=== PATIENT | female | born 1945 | race Caucasian/White ===

== ENCOUNTER 2018-11-25 15:06 | Inpatient (IN) ==
[2018-11-25 15:18] LABS: BASO# 0.04 X1000 (0.0-0.2); BASO% 0.5 % (0.0-0.8); EOS# 0.08 X1000 (0.0-0.7); EOS% 1.1 % (0.0-10.0); HEMATOCRIT 36.2 % (37.0-47.0); HEMOGLOBIN 12.2 g/dL (12.0-16.0); IMM GRAN# 0.08 X1000 (0.0-0.04); IMM GRAN% 1.1 % (0.0-0.5); LYMPH# 0.84 X1000 (1.2-3.4); MCH 30.3 PG (27-31); MCHC 33.7 g/dL (33-37); MONO# 0.59 X1000 (0.11-0.59); MONO% 7.8 % (1.7-9.3); NEUT# 5.98 X1000 (1.4-6.5); NEUT% 78.5 % (42.2-75.2); PLT 243 X1000 (130-400); RBC 4.02 XMIL (4.2-5.4); RDW 13.2 % (11.5-14.5); WBC 7.61 X1000 (4.8-10.8)
[2018-11-25 15:20] LABS: URINE SOURCE CATH
[2018-11-25 15:25] LABS: BILIRUBIN URINE NEGATIVE (NEGATIVE); BLOOD URINE TRACE (NEGATIVE); CLARITY VERY CLOUDY (CLEAR); COLOR YELLOW; KETONE URINE TRACE mg/dL (NEGATIVE); LEUKOCYTES URINE TRACE (NEGATIVE); NITRITE URINE POSITIVE (NEGATIVE); SP GRAVITY URINE 1.015; UROBILINOGEN URINE NORMAL
[2018-11-25] MEDS ORDERED: NS 500 ML IV ONE ×2 (15:25→17:24)
[2018-11-25 15:31] LABS: URINE BACTERIA 4+ /HFP; URINE CAST NONE SEEN /LPF; URINE CRYSTAL NONE SEEN /HPF; URINE EPITHELIAL CELLS <10 /HPF (<10); URINE RBC <10 /HPF (<10); URINE WBC TNTC /HPF (<10); URINE YEAST NONE SEEN /HPF
[2018-11-25 15:35] LABS: UR AMPHETAMINES QUAL NONE DETECTED (NONE DETECT); UR BARBITUATES QUAL NONE DETECTED (NONE DETECT); UR BENZODIAZEPIN QUAL PRESUMPTIVE POSITIVE (NONE DETECT); UR CANNABINOIDS QUAL NONE DETECTED (NONE DETECT); UR COCAINE QUAL NONE DETECTED (NONE DETECT); UR METHADONE QUAL NONE DETECTED (NONE DETECT); UR METHAMPHETAMINE QUAL NONE DETECTED (NONE DETECT); UR OPIATES QUAL NONE DETECTED (NONE DETECT); UR OXYCODONE QUAL NONE DETECTED (NONE DETECT); UR PCP QUAL NONE DETECTED (NONE DETECT); UR PROPOXYPHENE QUAL NONE DETECTED (NONE DETECT); UR TCA QUAL NONE DETECTED (NONE DETECT)
[2018-11-25 15:37] LABS: ACETAMINOPHEN < 1.2 ug/mL (10-30); AGAP 10; ALBUMIN 3.5 g/dL (3.5-5.0); ALKALINE PHOSPHATASE 70 U/L (32-104); BUN 16 mg/dL (8-22); CALCIUM 8.5 mg/dL (8.8-10.2); CHLORIDE 103 mmol/L (98-107); COSMO 281; CREATININE 0.8 mg/dL (0.5-0.9); ESTIMATED GFR > 60; GLUCOSE 205 mg/dL (70-104); GOT 15 U/L (10-30); GPT 10 U/L (10-36); POTASSIUM 4.1 mmol/L (3.5-5.1); SALICYLATES < 3.00 mg/dL (3-10); SODIUM 137 mmol/L (136-145); TCO2 24 mmol/L (25-35); TOTAL PROTEIN 6.6 g/dL (6.3-8.3)
[2018-11-25 15:48] LABS: BE -2.2 mmoll (-3.0-3.0); BLOOD TYPE ARTERIAL; HCO3-(ACT) 23.2 mmoll (20.0-26.0); METHB 0.8 % (0.0-1.5); O2(CT) 17.1 mL/dL (15.0-23.0); O2HB 96.3 % (95.0-99.0); PCO2(98.6) 47 mmHg (35-45); PO2(98.6) 133 mmHg (60-100); SAMPLE BLOOD; SAO2 98.8 % (95.0-100.0); THB 12.5 g/dL (11.5-17.4); pH(98.6) 7.32 (7.35-7.45)
[2018-11-25 15:51] LABS: ALLEN TEST YES; MODALITY CANNULA
--- NOTE | 2018-11-25 16:00 | PROVIDER DOCUMENTATION ---
This chart was entered by Kinza Lazaro Scribe, acting as scribe for Bob Santoyo MD. [id number] Abuse/Overdose - General Chief Complaint: Overdose Stated Complaint: OVERDOSE Time Seen by Provider: 11/25/18 14:45 Source: EMS Allergies/Adverse Reactions: Allergies Allergy/AdvReac Type Severity Reaction Status Date / Time No Known Allergies Allergy Verified 07/21/18 11:55 Home Medications: Home Medication List Medication Instructions Recorded Confirmed Last Taken Type Lisinopril 10 mg PO DAILY 11/30/14 11/25/18 11/24/18 History Lorazepam [Ativan] 1 mg PO Q6HR 11/30/14 11/25/18 11/25/18 History PRAVAstatin [Pravachol] 40 mg PO DAILY 11/30/14 11/25/18 11/24/18 History Sertraline [Zoloft] 50 mg PO DAILY 11/30/14 11/25/18 11/24/18 History Insulin Detemir [Levemir] 30 unit SUBQ BID 12/05/14 11/25/18 11/24/18 History Methocarbamol [Robaxin] 500 mg PO BID #20 tab 07/21/18 11/25/18 11/24/18 Rx - History of Present Illness-Drug/Alcohol Nature of Presenting Problem: 73 y/o female is brought to the ED via EMS after being found unresponsive and two empty bottles of Ativan found near the patient. EMS states they gave Narcan 2 amps without response. The patient is snoring and offers no complaint. This episode of drinking or use began:: unsure Situational problems related to:: reports: N/A Psychiatric Complaints: reports: denies symptoms Associated Symptoms: reports: denies symptoms Any injuries associated with this episode of intoxication?: No Similar Symptoms Previously?: No Recently seen or treated by another doctor?: No - Substance Abuse Substance Use: reports: benzodiazepines - Overdose List substance(s) ingested.: Ativan How did the ingestion/other suicidal act come to attention?: family found unresponsive Review of Systems - Adult - REVIEW OF SYSTEMS - ADULT ROS:: unobtainable per condition Constitutional: reports: no symptoms reported Past History - Adult - PAST MEDICAL HISTORY-ADULT Review of Records: reports: Old Records Reviewed, Nursing Assessment Review, Medications Reviewed Cardiovascular: reports: hyperlipidemia Psychiatric: reports: depression Endocrine/Immune: reports: Diabetes Other Conditions: reports: cataract/glaucoma - PRIOR SURGERIES/PROCEDURES Surgical/Procedure History: reports: hysterectomy, other (cataract removal) - PRIOR HOSPITALIZATIONS Prior Hospitalizations: reports: for other non-related - IMMUNIZATION STATUS Childhood Immunizations: See Nurse Assessment Flu Vaccine: See Nurse Assessment - FAMILY HISTORY Family History: reviewed, not pertinent - SOCIAL HISTORY Smoking: non-smoker Physical Exam-General - PHYSICAL EXAM-ADULT Initial Vital Signs Reviewed: Yes - CONSTITUTIONAL General Appearance: severe distress, lethargic, slow to respond, obtunded - EYES Eyes: other (pinpoints) - HEAD, EARS, NOSE, MOUTH & THROAT HENMT: normocephalic/atraumatic - NECK Neck: full range of motion, supple - RESPIRATORY Respiratory: respiratory distress, rhonchi - CARDIOVASCULAR Cardiovascular: regular rate, rhythm - GASTROINTESTINAL (ABDOMEN) Abdominal Exam: non tender, soft - LYMPHATIC Lymphatic: no adenopathy - MUSCULOSKELETAL Back Exam: normal inspection, no CVA tenderness, no vertebral tenderness Extremity: normal range of motion, non-tender, normal gait - SKIN Integumentary: normal color, normal turgor - NEUROLOGIC Neurologic: grossly normal - PSYCHIATRIC Psych/Mental Status: oriented x 3 Progress - PLAN OF CARE/RESULTS Progress/Plan/Lab Results: Vital Signs - 8 hr 11/25/18 15:09 11/25/18 15:49 Pulse Rate 91 H 86 Respiratory Rate 17 14 Blood Pressure 165/80 156/85 O2 Sat by Pulse Oximetry 97 100 Laboratory Results - last 24 hr 11/25/18 11/25/18 11/25/18 15:05 15:05 15:05 WBC 7.61 RBC 4.02 L Hgb 12.2 Hct 36.2 L MCV 90.0 MCH 30.3 MCHC 33.7 RDW Std Deviation 13.2 Plt Count 243 MPV 10.0 Immature Gran % (Auto) 1.1 H Neut % (Auto) 78.5 H Lymph % (Auto) 11.0 L Vernon % (Auto) 7.8 Eos % (Auto) 1.1 Baso % (Auto) 0.5 Immature Gran # (Auto) 0.08 H Neut # (Auto) 5.98 Lymph # (Auto) 0.84 L Vernon # (Auto) 0.59 Eos # (Auto) 0.08 Baso # (Auto) 0.04 Specimen Type Sample Site pH pCO2 pO2 HCO3 Base Excess Oxyhemoglobin ABG O2 Sat (Calculated) ABG O2 Saturation ABG Carboxyhemoglobin ABG Methemoglobin Al Test A-a O2 Difference Total Hemoglobin Lactate Liter Flow Blood Gas Modality FiO2 % Sodium 137 Potassium 4.1 Chloride 103 Carbon Dioxide 24 L Anion Gap 10 BUN 16 Creatinine 0.8 Estimated GFR/1.73 m2 > 60 BUN/Creatinine Ratio 20 Glucose 205 H POC Glucose Calculated Osmolality 281 Calcium 8.5 L Total Bilirubin 0.30 AST 15 ALT 10 Alkaline Phosphatase 70 Total Protein 6.6 Albumin 3.5 Globulin 3.0 Albumin/Globulin Ratio 1.0 Urine Source Urine Color Urine Clarity Urine pH Ur Specific [place] Urine Protein Urine Ketones Urine Blood Urine Nitrite Urine Bilirubin Urine Urobilinogen Urine Microscopic RBC Urine WBC Urine Microscopic WBC Ur Epithelial Cells Urine Crystals Urine Bacteria Urine Casts Urine Yeast Urine Glucose Salicylates < 3.00 L Urine Opiates Screen Ur Oxycodone Screen Urine Methadone Screen U Propoxyphene Qual Acetaminophen < 1.2 L Ur Barbituates Screen Ur Tricyclics Screen Ur Phencyclidine Scrn Ur Amphetamines Screen U Methamphetamines Scrn U Benzodiazepines Scrn Urine Cocaine Screen U Cannabinoids Screen Plasma/Serum Ethyl Alc 11/25/18 11/25/18 11/25/18 15:15 15:15 15:19 WBC RBC Hgb Hct MCV MCH MCHC RDW Std Deviation Plt Count MPV Immature Gran % (Auto) Neut % (Auto) Lymph % (Auto) Vernon % (Auto) Eos % (Auto) Baso % (Auto) Immature Gran # (Auto) Neut # (Auto) Lymph # (Auto) Vernon # (Auto) Eos # (Auto) Baso # (Auto) Specimen Type Sample Site pH pCO2 pO2 HCO3 Base Excess Oxyhemoglobin ABG O2 Sat (Calculated) ABG O2 Saturation ABG Carboxyhemoglobin ABG Methemoglobin Al Test A-a O2 Difference Total Hemoglobin Lactate Liter Flow Blood Gas Modality FiO2 % Sodium Potassium Chloride Carbon Dioxide Anion Gap BUN Creatinine Estimated GFR/1.73 m2 BUN/Creatinine Ratio Glucose POC Glucose 209 H Calculated Osmolality Calcium Total Bilirubin AST ALT Alkaline Phosphatase Total Protein Albumin Globulin Albumin/Globulin Ratio Urine Source CATH Urine Color YELLOW Urine Clarity VERY CLOUDY A Urine pH 5.0 Ur Specific [place] 1.015 Urine Protein 3+(500 mg/dL) A Urine Ketones TRACE Urine Blood TRACE Urine Nitrite POSITIVE A Urine Bilirubin NEGATIVE Urine Urobilinogen NORMAL Urine Microscopic RBC <10 Urine WBC TRACE A Urine Microscopic WBC TNTC A Ur Epithelial Cells <10 Urine Crystals NONE SEEN Urine Bacteria 4+ Urine Casts NONE SEEN Urine Yeast NONE SEEN Urine Glucose 3+(500 mg/dL) A Salicylates Urine Opiates Screen NONE DETECTED Ur Oxycodone Screen NONE DETECTED Urine Methadone Screen NONE DETECTED U Propoxyphene Qual NONE DETECTED Acetaminophen Ur Barbituates Screen NONE DETECTED Ur Tricyclics Screen NONE DETECTED Ur Phencyclidine Scrn NONE DETECTED Ur Amphetamines Screen NONE DETECTED U Methamphetamines Scrn NONE DETECTED U Benzodiazepines Scrn PRESUMPTIVE POSITIVE A Urine Cocaine Screen NONE DETECTED U Cannabinoids Screen NONE DETECTED Plasma/Serum Ethyl Alc 11/25/18 15:30 WBC RBC Hgb Hct MCV MCH MCHC RDW Std Deviation Plt Count MPV Immature Gran % (Auto) Neut % (Auto) Lymph % (Auto) [place] % (Auto) Eos % (Auto) Baso % (Auto) Immature Gran # (Auto) Neut # (Auto) Lymph # (Auto) [place] # (Auto) Eos # (Auto) Baso # (Auto) Specimen Type ARTERIAL Sample Site R RADIAL pH 7.32 L pCO2 47 H pO2 133 H HCO3 23.2 Base Excess -2.2 Oxyhemoglobin 96.3 ABG O2 Sat (Calculated) 17.1 ABG O2 Saturation 98.8 ABG Carboxyhemoglobin 1.70 ABG Methemoglobin 0.8 Al Test YES A-a O2 Difference 36.0 Total Hemoglobin 12.5 Lactate 0.60 Liter Flow 3.0 Blood Gas Modality CANNULA FiO2 % 32.0 Sodium Potassium Chloride Carbon Dioxide Anion Gap BUN Creatinine Estimated GFR/1.73 m2 BUN/Creatinine Ratio Glucose POC Glucose Calculated Osmolality Calcium Total Bilirubin AST ALT Alkaline Phosphatase Total Protein Albumin Globulin Albumin/Globulin Ratio Urine Source Urine Color Urine Clarity Urine pH Ur Specific [place] Urine Protein Urine Ketones Urine Blood Urine Nitrite Urine Bilirubin Urine Urobilinogen Urine Microscopic RBC Urine WBC Urine Microscopic WBC Ur Epithelial Cells Urine Crystals Urine Bacteria Urine Casts Urine Yeast Urine Glucose Salicylates Urine Opiates Screen Ur Oxycodone Screen Urine Methadone Screen U Propoxyphene Qual Acetaminophen Ur Barbituates Screen Ur Tricyclics Screen Ur Phencyclidine Scrn Ur Amphetamines Screen U Methamphetamines Scrn U Benzodiazepines Scrn Urine Cocaine Screen U Cannabinoids Screen Plasma/Serum Ethyl Alc Orders Category Date Time Status Cardiac Monitoring DIRECTED Care 11/25/18 14:38 Active Finger Stick Blood Sugar (ED) DIRECTED Care 11/25/18 14:[address] HEAD W/O CONTRAST [CT] Stat Exams 11/25/18 15:00 Taken ABG [RESP] Routine Lab 11/25/18 15:30 Completed ACETAMINOPHEN [TDM] Stat Lab 11/25/18 15:05 Completed ALCOHOL BLOOD Stat Lab 11/25/18 15:05 Completed CBC WITH ELECTRONIC DIFF [HEME] Stat Lab 11/25/18 15:05 Completed COMPREHENSIVE METABOLIC PANEL [CHEM] Stat Lab 11/25/18 15:05 Completed SALICYLATES [TDM] Stat Lab 11/25/18 15:[address] [URINALYSIS] Stat Lab 11/25/18 15:15 Completed URINE DRUG SCREEN [address] Stat Lab 11/25/18 15:15 Completed URINE MICROSCOPIC [URINALYSIS] Stat Lab 11/25/18 15:15 Completed Overdose (suspected) Stat Oth 11/25/18 14:37 Ordered EKG [EKG] Stat Ther 11/25/18 14:38 Ordered 1339: Family is here now and talking to them they admit the patient has been talking about wanting to be with her mother or voicing suicidal ideation. Result Diagrams: 11/25/18 15:05 11/25/18 15:05 - EKG 1 Time of EKG reading by physician:: 15:33 EKG Read and Signed by:: Bob Santoyo EKG Interpretation (*Must complete 3 of following elements*): Abnormal Rate: 87 Rhythm: sinus w/fusion complexes Comments: otherwise normal - CONSULTS/PCP/HOSPITALIST Notification #1 *Consult/PCP/Hospitalist*: Dr. Encinas, Hospitalist Time Discussed: 15:41 Reason/Comments: possible intentional OD Consult Disposition: Will see in ED Departure - Departure Date of Disposition Decision: 11/25/18 Time of Disposition Decision: 15:59 DIAGNOSIS: Obtunded Disposition: ADMITTED INPATIENT 09 Certified Medical Emergency: Emergent Condition: Stable Additional Freetext Instructions: ED Follow Up Instructions: You have been treated by a care provider in the Emergency Department. These instructions are being provided to you so you can have an understanding of how to care for yourself upon discharge. Upon discharge from the Emergency Department, you are responsible for making arrangements for follow-up care by a physician of your choice. Take all prescribed medications as directed. Return to the Emergency Department immediately for any new or worsening symptoms. You may call the Physician Referral phone number at [phone] to obtain a list of Physicians who are taking new patients. Referrals and Follow-Ups: None,PCP [Primary Care Provider] - - Critical Care Note This patient required my direct & personal management of CC.: Yes Total Time (mins): 30 Critical Care Statement: This patient required my direct personal management to treat or rule out processes, the absence of which, could potentiallly result in sudden, clinically significant life or limb threatening deterioration. Attestation - Physician/ JATIN Attestation Patient care was provided by Advanced Practice Provider:: No The physician spent face to face time with patient:: Yes Advanced Practice Provider documentation review:: Supervising physician onsite and consulted in the evaluation and care of this patient. The physician did have a face to face encounter with the patient. This chart was documented by the indicated scribe, (Kinza Lazaro, Abdirashid) and accurately reflects the services I performed and decisions made by me, Bob Santoyo MD, as attested by the provider's signature.
--- NOTE | 2018-11-25 16:12 | Diag Imaging Result Doc PS360 ---
CT HEAD W/O CONTRAST - 11/25/2018 INDICATION: ams COMPARISON: 03/28/2012 FINDINGS: The ventricles and sulci are normal in size and contour. No intracranial mass or hemorrhage. The skull is intact. The sinuses mastoids and middle ears are clear. IMPRESSION: Negative exam. This exam was performed using automated exposure control, adjustment of mA or kV according to patient size, and/or use of iterative reconstruction technique Electronically signed by Bharath Salazar 11/25/2018 4:10 PM
[2018-11-25] MEDS: ROCEPHIN 1 GM in NS 50 ML IV SCH ×2 (16:50→17:00)
[2018-11-25] MEDS ORDERED: NS 1,000 ML ONE (16:54)
[2018-11-25] MEDS ORDERED: AMIDATE ONE (17:00)
[2018-11-25] MEDS ORDERED: QUELICIN ONE (17:01)
--- NOTE | 2018-11-25 17:32 | Diag Imaging Result Doc PS360 ---
CHEST-PORTABLE - 11/25/2018 INDICATION: AMS COMPARISON: 08/15/2011 FINDINGS: There is an endotracheal tube at T4 and nasogastric tube in good position in the stomach. The lungs are clear. Heart size is normal. No pneumothorax or pleural effusion. IMPRESSION: No complication from tube placement. No acute disease. Electronically signed by Bharath Salazar 11/25/2018 5:29 PM
[2018-11-25] MEDS: PROTONIX IV SCH (17:45)
[2018-11-25 18:00] LABS: BE -0.4 mmoll (-3.0-3.0); BLOOD TYPE ARTERIAL; HCO3-(ACT) 24.6 mmoll (20.0-26.0); METHB 1.1 % (0.0-1.5); O2(CT) 15.9 mL/dL (15.0-23.0); O2HB 96.2 % (95.0-99.0); PCO2(98.6) 29 mmHg (35-45); PO2(98.6) 163 mmHg (60-100); SAMPLE BLOOD; SAO2 98.9 % (95.0-100.0); SRATE 16 BPM; THB 11.5 g/dL (11.5-17.4); TVOL 500 mL; pH(98.6) 7.49 (7.35-7.45)
[2018-11-25 18:04] LABS: ALLEN TEST YES; MODALITY VENTILATOR
[2018-11-25] MEDS: SODIUM CHLORIDE 0.9% INJ SCH (18:05)
[2018-11-25] MEDS: DUONEB (A & A) INH SCH ×2 (19:10→23:32)
[2018-11-25 19:25] LABS: ACETAMINOPHEN < 1.2 ug/mL (10-30); SALICYLATES < 3.00 mg/dL (3-10)
--- NOTE | 2018-11-25 19:39 | HISTORY AND PHYSICAL ---
CHIEF COMPLAINT: Altered mental status. HISTORY OF PRESENT ILLNESS: The patient is a 73-year-old female who presented to the ER via ambulance service. The entire history is per family, as Ms. Monteiro is lethargic and sedated. The [id number] notes that they had seen her last night as well as early this morning, and she appeared to have no issues. They had left the house to run errands. Per Ms. Monteiro's phone, she had talked to her around 11 o'clock. The family arrived back some time after noon, and Ms. Monteiro was lying on the floor, stiff, and lying on a pill bottle, which had apparently cut the side of her face. The daughter notes that upon initial evaluation, she was afraid Ms. Monteiro was ; however, when she got close enough, she could see that she was barely breathing. They called the ambulance, and Ms. Monteiro was brought to the ER. The ambulance tried Narcan to no avail. The daughter notes that Ms Monteiro had 5 separate bottles of Ativan with different dates, with the most distant day being 2014. They are unaware if she took pills, and if so, how much. They do note that she had occasionally talked about wanting to go see her mother who several years ago; however, they deny any true knowledge of suicidal ideations. Ms. Monteiro has been depressed, but no more than usual. ALLERGIES: No known drug allergies. MEDICATIONS: Lisinopril 10, Ativan 1 mg every 6 hours p.r.n., Pravachol 40, Zoloft 50, insulin 30 b.i.d., Robaxin. REVIEW OF SYSTEMS: Unobtainable other than as noted above due to Ms. Monteiro's current state. PAST MEDICAL HISTORY: Significant for chronic depression, high cholesterol, diabetes, anxiety, hypertension. PAST SURGICAL HISTORY: She has had a cataract removal. FAMILY HISTORY: Noncontributory. SOCIAL HISTORY: She does not smoke, drink or use other illicit substances, per the family. PHYSICAL EXAMINATION: VITAL SIGNS: Reviewed. Pulse 90, respiratory rate 17, BP 165/80, saturation 95% to 97% on 2 L. GENERAL: The patient is sedated. She is not arousable even with sternal rub. She is snoring. HEENT: Normocephalic. NECK: Supple. CARDIOVASCULAR: Regular rate. CHEST: Clear of wheezing, although positive rhonchorous upper airway noises as well as significant snoring. Snoring is slightly better when she is propped up. This also improves her air movement. ABDOMEN: Soft, nondistended. EXTREMITIES: She has no edema. NEUROLOGIC: Patient is sedated and lethargic. Does not arouse. LABS: WBCs 7, hemoglobin and hematocrit 12 and 36. CMP essentially normal except for glucose of 205. Salicylate at 3, acetaminophen at 1.2. Urine with trace blood, positive nitrites. ABG with a pH of 7.32. ASSESSMENT: Acute altered mental status, most likely secondary to drug use. Unsure if this is intentional or accidental. Given the quick time frame, it certainly may be intentional. We will admit her to the hospital, place her in the ICU and continue to follow her respiratory status with supportive care. ADDENDUM: Unfortunately, the patient's respiratory status continued to decline. She is no longer maintaining her airway even with being propped up, and therefore she will be intubated prior to being admitted. cc: Ishaan Encinas MD
[2018-11-25] MEDS ORDERED: HUMALOG (PARKWAY) SUBQ SCH (21:00)
[2018-11-26] MEDS: DUONEB (A & A) INH SCH ×5 (02:39→23:21)
[2018-11-26] MEDS ORDERED: ZOFRAN IV PRN (02:47)
[2018-11-26] MEDS: NS 1,000 ML IV SCH ×2 (03:15→13:49)
[2018-11-26 05:01] LABS: BASO# 0.02 X1000 (0.0-0.2); BASO% 0.3 % (0.0-0.8); EOS# 0.11 X1000 (0.0-0.7); EOS% 1.6 % (0.0-10.0); HEMATOCRIT 31.6 % (37.0-47.0); HEMOGLOBIN 10.7 g/dL (12.0-16.0); IMM GRAN# 0.04 X1000 (0.0-0.04); IMM GRAN% 0.6 % (0.0-0.5); LYMPH# 1.08 X1000 (1.2-3.4); LYMPH% 15.5 % (20.5-51.1); MCH 30.2 PG (27-31); MCHC 33.9 g/dL (33-37); MCV 89.3 FL (81-99); MONO# 0.56 X1000 (0.11-0.59); MONO% 8.1 % (1.7-9.3); MPV 10.6 FL (7.4-10.4); NEUT# 5.14 X1000 (1.4-6.5); NEUT% 73.9 % (42.2-75.2); PLT 231 X1000 (130-400); RBC 3.54 XMIL (4.2-5.4); RDW 13.4 % (11.5-14.5); WBC 6.95 X1000 (4.8-10.8)
[2018-11-26 05:10] LABS: ALLEN TEST YES; BE -2.3 mmoll (-3.0-3.0); BLOOD TYPE ARTERIAL; HCO3-(ACT) 23.1 mmoll (20.0-26.0); METHB 0.9 % (0.0-1.5); O2(CT) 15.3 mL/dL (15.0-23.0); O2HB 97.2 % (95.0-99.0); PCO2(98.6) 30 mmHg (35-45); PO2(98.6) 137 mmHg (60-100); SAMPLE BLOOD; SAO2 99.3 % (95.0-100.0); SRATE 16 BPM; TVOL 450 mL; pH(98.6) 7.45 (7.35-7.45)
[2018-11-26 05:11] LABS: MODALITY VENTILATOR
[2018-11-26 05:33] LABS: AGAP 13; ALB/GLOB RATIO 1.2; ALKALINE PHOSPHATASE 58 U/L (32-104); BUN 19 mg/dL (8-22); CALCIUM 8.3 mg/dL (8.8-10.2); CHLORIDE 107 mmol/L (98-107); COSMO 283; CREATININE 0.8 mg/dL (0.5-0.9); ESTIMATED GFR > 60; GLUCOSE 163 mg/dL (70-104); GOT 11 U/L (10-30); GPT 7 U/L (10-36); POTASSIUM 3.5 mmol/L (3.5-5.1); SODIUM 139 mmol/L (136-145); TCO2 19 mmol/L (25-35); TOTAL BILIRUBIN 0.27 mg/dL (0.20-1.00); TOTAL PROTEIN 5.6 g/dL (6.3-8.3)
[2018-11-26] MEDS: PROTONIX IV SCH ×2 (06:42→17:06)
[2018-11-26] MEDS: SODIUM CHLORIDE 0.9% INJ SCH ×2 (06:42→17:06)
[2018-11-26] MEDS: HUMALOG SUBQ SCH ×4 (06:43→20:31)
--- NOTE | 2018-11-26 07:12 | Diag Imaging Result Doc PS360 ---
CHEST-PORTABLE - 11/26/2018 INDICATION: vent patient COMPARISON: 11/25/2018 FINDINGS: Stable endotracheal tube and nasogastric tube. The lungs are clear and the heart size is normal. IMPRESSION: No acute disease or complication. Electronically signed by Bharath Salazar 11/26/2018 7:10 AM
[2018-11-26] MEDS: APRESOLINE IV PRN (10:59)
[2018-11-26 11:51] LABS: ALLEN TEST YES; BE -1.1 mmoll (-3.0-3.0); BLOOD TYPE ARTERIAL; HCO3-(ACT) 24.1 mmoll (20.0-26.0); METHB 0.9 % (0.0-1.5); MODALITY VENTILATOR; O2HB 96.9 % (95.0-99.0); PCO2(98.6) 29 mmHg (35-45); PO2(98.6) 164 mmHg (60-100); SAMPLE BLOOD; SAO2 99.2 % (95.0-100.0); THB 11.5 g/dL (11.5-17.4); pH(98.6) 7.48 (7.35-7.45)
--- NOTE | 2018-11-26 12:38 | PULMONOLOGY CONSULTATION ---
DATE: 11/26/2018 REQUESTING PHYSICIAN: Dr. Encinas. REASON FOR CONSULTATION: Respiratory failure. HISTORY OF PRESENT ILLNESS: Ms. Monteiro is a 73-year-old, white female, never smoker, who was found unresponsive by family with 2 empty bottles of Ativan nearby. The patient received Narcan by EMS but it is not clear that she received a dose of Romazicon. The patient was admitted to the hospital for observation but developed progressive apnea and obtundation requiring intubation for acute respiratory failure. The patient was initially admitted to the [facility] but has been transferred to [facility]. The patient did undergo a CT scan of the brain which was negative for acute changes. By report, the patient has been depressed with the loss of her mother who several years ago and has been talking about wanting to go see her. PAST MEDICAL HISTORY/PROBLEM LIST: 1. Depression/anxiety disorder. 2. Hypertension. 3. Dyslipidemia. 4. Diabetes mellitus. SOCIAL HISTORY: Nonsmoker. No alcohol use. FAMILY HISTORY: Noncontributory to current presentation. REVIEW OF SYSTEMS: Cannot be obtained. PHYSICAL EXAMINATION: General: Reveals a thin, white female. Her height is incorrectly listed in the computer as 7 foot and 11 inches and this will be addressed with the nursing staff. She does appear to be thin. She will withdraw to painful stimuli and grimace. Vital Signs: The patient has been afebrile for the last 24 hours. Blood pressure 161/72, heart rate 93, respiratory rate 14, oxygen saturation 100%. HEENT: Pupils are equal and reactive. Oropharynx appears clear. Neck: Supple. Chest: Reveals good air entry bilaterally without wheezing or rhonchi. Cardiac Examination: S1, S2. Abdomen: Soft, with positive bowel sounds. Extremities: Without edema. LABORATORIES: Chest x-ray reveals endotracheal tube in good position. Toxicology is positive for benzodiazepines. Salicylates and acetaminophen are negative. Electrolytes: Sodium 139, potassium 3.5, chloride 107, bicarbonate 19, anion gap minimally elevated at 13, glucose 163. IMPRESSION: A 73-year-old with a long history of anxiety and depression who presents obtunded with altered mental status and developed acute respiratory failure with loss of her airway requiring intubation and mechanical ventilation. She has encephalopathy but mental status appears to be improving. The patient received Narcan but not Romazicon. At this juncture, would not use Romazicon at the risk of initiating seizures. She appears to be approaching extubation. RECOMMENDATION: 1. Place on spontaneous breathing trial and follow. 2. The patient will need a formal psychiatric evaluation prior to discharge. 3. Routine bronchial hygiene. 4. Anticipate extubation later today if she has expected clinical improvement. cc: MD Isaac Jay MD MTDDarline
[2018-11-26] MEDS: ROCEPHIN 1 GM in NS 50 ML IV SCH (16:22)
[2018-11-27] MEDS: DUONEB (A & A) INH SCH ×6 (03:12→22:30)
[2018-11-27 04:40] LABS: ALLEN TEST YES; BE -3.7 mmoll (-3.0-3.0); BLOOD TYPE ARTERIAL; METHB 1.2 % (0.0-1.5); O2(CT) 15.3 mL/dL (15.0-23.0); O2HB 96.6 % (95.0-99.0); PCO2(98.6) 24 mmHg (35-45); PO2(98.6) 174 mmHg (60-100); SAMPLE BLOOD; SAO2 98.7 % (95.0-100.0); pH(98.6) 7.49 (7.35-7.45)
[2018-11-27 04:42] LABS: MODALITY VENTILATOR
[2018-11-27] MEDS: HUMALOG SUBQ SCH ×4 (06:30→20:39)
[2018-11-27] MEDS: PROTONIX IV SCH ×2 (06:31→17:23)
[2018-11-27] MEDS: SODIUM CHLORIDE 0.9% INJ SCH (06:31)
--- NOTE | 2018-11-27 07:18 | Diag Imaging Result Doc PS360 ---
EXAM: CHEST-PORTABLE INDICATION: vent patient TECHNIQUE: One view COMPARISON: 11/26/2018 FINDINGS: Support tubes and lines are in stable positions. The lungs are grossly clear. There is no discrete pleural fluid collection or pneumothorax. The cardiomediastinal silhouette and central vasculature are grossly unremarkable. IMPRESSION: Stable chest with no definite acute pathology by plain radiograph. Electronically signed by Fady Ohara 11/27/2018 7:15 AM
--- NOTE | 2018-11-27 07:35 | EKG Report ---
Test Performed on : 11/26/2018 11:47:14 AM Test Reason : Repeat for poison control Blood Pressure : / mmHG Vent. Rate : 096 BPM Atrial Rate : 096 BPM P-R Int : 162 ms QRS Dur : 080 ms QT Int : 370 ms P-R-T Axes : 074 073 078 degrees QTc Int : 467 ms Normal sinus rhythm. Normal ECG When compared with ECG of 15-AUG-2011 10:04, No significant change was found Confirmed by Chela PEREZ, Sergio ([id number]) on 11/27/2018 9:00:37 AM
[2018-11-27 08:39] LABS: BASO# 0.03 X1000 (0.0-0.2); BASO% 0.3 % (0.0-0.8); EOS# 0.02 X1000 (0.0-0.7); EOS% 0.2 % (0.0-10.0); HEMATOCRIT 31.7 % (37.0-47.0); HEMOGLOBIN 10.4 g/dL (12.0-16.0); IMM GRAN# 0.05 X1000 (0.0-0.04); IMM GRAN% 0.5 % (0.0-0.5); LYMPH# 0.96 X1000 (1.2-3.4); LYMPH% 9.1 % (20.5-51.1); MCH 30.1 PG (27-31); MCHC 32.8 g/dL (33-37); MCV 91.9 FL (81-99); MONO# 0.98 X1000 (0.11-0.59); MONO% 9.3 % (1.7-9.3); MPV 10.5 FL (7.4-10.4); NEUT# 8.53 X1000 (1.4-6.5); NEUT% 80.6 % (42.2-75.2); PLT 210 X1000 (130-400); RBC 3.45 XMIL (4.2-5.4); RDW 13.6 % (11.5-14.5); WBC 10.57 X1000 (4.8-10.8)
--- NOTE | 2018-11-27 09:41 | PROGRESS NOTE ---
DATE: 11/27/2018 SUBJECTIVE: I reviewed the patient's chart and reports by the admitting team. She was apparently admitted at [place] for lethargy and sedation and possible suicidal attempt. The patient was admitted there, transferred to [place]. Unfortunately I was not even notified of her presence in the hospital until yesterday afternoon. She had been on the hospitalist service up to this point. Apparently, the family is mad that hospitalist did not call them yesterday and would like me to call today. OBJECTIVE: Vital Signs: T-max 99.7, temperature now 99.7, pulse rate is 118, respiratory rate is 18, blood pressure 132/59. General: The patient does not wake up or respond to stimuli very much. HEENT: His pupils are of normal size and seem to react. Lungs: Clear to auscultation bilaterally. Cardiovascular: A regular tachycardia. LABORATORY DATA: White cell count 10.5, hematocrit 31.7. ABG shows a pH of 7.49, pCO2 of 24, PO2 of 174. She is on a ventilator at 30% FiO2 and 5 of PEEP, 5 pressure support. Blood sugar has been variable, today it was 283. I noted that the patient's urinalysis showed [id number]-count white cells, but no culture was sent. Since she has already give been given antibiotics, I doubt anything will grow but I am going to send for culture for completeness sake. If she continues to run a temperature and remains obtunded, we may have to broaden our antibiotic coverage. ASSESSMENT AND PLAN: 1. The patient remains obtunded. It is unclear how much Ativan she took. It is also unclear whether urinary tract infection is affecting her level of mental activity. She remains on the ventilator. Dr. Quintana has been consulted and will make adjustments in the ventilator. 2. I have sent urine for culture. She is on Rocephin and will remain on that for the time being. 3. The patient's diabetes is variable. She is covered by sliding scale insulin. 4. I have the patient's son's phone number and will attempt to call him today to give an update. cc: Isaac Palacio MD
[2018-11-27 09:53] LABS: AGAP 11; ALB/GLOB RATIO 1.1; ALBUMIN 3.1 g/dL (3.5-5.0); ALKALINE PHOSPHATASE 69 U/L (32-104); BUN 20 mg/dL (8-22); CALCIUM 8.6 mg/dL (8.8-10.2); CHLORIDE 108 mmol/L (98-107); COSMO 287; CREATININE 0.9 mg/dL (0.5-0.9); ESTIMATED GFR > 60; GLUCOSE 224 mg/dL (70-104); GOT 8 U/L (10-30); GPT 6 U/L (10-36); POTASSIUM 3.5 mmol/L (3.5-5.1); SODIUM 139 mmol/L (136-145); TCO2 20 mmol/L (25-35); TOTAL PROTEIN 5.8 g/dL (6.3-8.3)
[2018-11-27] MEDS ORDERED: ROMAZICON IV ONE (15:46)
--- NOTE | 2018-11-27 16:15 | PULMONOLOGY PROGRESS NOTE ---
DATE: 11/27/2018 SUBJECTIVE: The patient responds to painful stimuli, but will not follow commands. The patient will not open her eyes. OBJECTIVE: The patient is currently having a fever of 100.2 degrees at noon today. Blood pressure 138/67, heart rate 112, respiratory rate 18, oxygen saturation 100%. HEENT: Pupils are equal and reactive to light. Oropharynx appears clear. Neck is supple. Chest reveals occasional rhonchi bilaterally. Cardiac: S1, S2. Abdomen is soft. Extremities are without edema. DIAGNOSTIC STUDIES: White blood count 10.57, hemoglobin 10.4, platelet count 210,000. Chemistry: Sodium 139, potassium 3.5, chloride 108, bicarbonate 20, BUN 20, creatinine 0.9. Chest x-ray reveals no evidence of acute disease. IMPRESSION: A 73-year-old with: 1. Acute respiratory failure. 2. Altered mental status. 3. Fevers. Patient's mental status was improving yesterday, but has slightly plateaued. She now has low- grade fevers without significant leukocytosis. As per Dr. Palacio, this may be related to urinary tract infection. However, with the altered mental status, meningitis also remains in the differential. I will give a small dose of Romazicon to see if this improves her mental status as a diagnostic trial. The goal is not to completely reverse any benzodiazepine, and I am aware that she is at increased risk for seizures with Romazicon. If she does not have improvement, then Neurology consultation will be performed, and she may require a lumbar puncture. RECOMMENDATIONS: 1. Continue spontaneous breathing trial pending improvement in mental status. 2. Small dose of Romazicon with evaluation of mental status. 3. Continue bronchial hygiene. 4. Continue current antibiotic regimen. TIME SPENT IN CRITICAL CARE MANAGEMENT: 30+ minutes. cc: MD Isaac Jay MD
[2018-11-27] MEDS: ROCEPHIN 1 GM in NS 50 ML IV SCH (17:23)
[2018-11-27] MEDS: TYLENOL PR PRN (18:18)
[2018-11-27] MEDS: ZOSYN 3.375 GM in NS 50 ML IV SCH ×2 (18:18→23:59)
[2018-11-27] MEDS ORDERED: VANCOMYCIN IV PER PHARMACY MISC SCH (18:45)
[2018-11-27] MEDS ORDERED: VANCOMYCIN 1,350 MG in NS 250 ML IV ONE (20:00)
[2018-11-28] MEDS: DUONEB (A & A) INH SCH ×6 (03:49→23:17)
[2018-11-28 04:53] LABS: ALLEN TEST YES; BE -5.7 mmoll (-3.0-3.0); BLOOD TYPE ARTERIAL; HCO3-(ACT) 20.5 mmoll (20.0-26.0); METHB 1.6 % (0.0-1.5); MODALITY BI PAP; O2(CT) 13.5 mL/dL (15.0-23.0); O2HB 96.5 % (95.0-99.0); PCO2(98.6) 40 mmHg (35-45); PO2(98.6) 198 mmHg (60-100); SAMPLE BLOOD; SAO2 99.2 % (95.0-100.0); THB 9.6 g/dL (11.5-17.4); pH(98.6) 7.31 (7.35-7.45)
[2018-11-28 05:15] LABS: BASO# 0.04 X1000 (0.0-0.2); BASO% 0.4 % (0.0-0.8); HEMATOCRIT 29.4 % (37.0-47.0); HEMOGLOBIN 9.5 g/dL (12.0-16.0); IMM GRAN# 0.05 X1000 (0.0-0.04); IMM GRAN% 0.5 % (0.0-0.5); LYMPH% 11.7 % (20.5-51.1); MCHC 32.3 g/dL (33-37); MCV 92.7 FL (81-99); MONO# 1.13 X1000 (0.11-0.59); MPV 10.9 FL (7.4-10.4); NEUT# 7.76 X1000 (1.4-6.5); NEUT% 75.4 % (42.2-75.2); PLT 187 X1000 (130-400); RBC 3.17 XMIL (4.2-5.4); RDW 13.6 % (11.5-14.5); WBC 10.28 X1000 (4.8-10.8)
[2018-11-28] MEDS: SODIUM CHLORIDE 0.9% INJ SCH (05:24)
[2018-11-28] MEDS: PROTONIX IV SCH ×2 (05:24→18:00)
[2018-11-28] MEDS: ZOSYN 3.375 GM in NS 50 ML IV SCH ×4 (05:24→23:49)
[2018-11-28 05:33] LABS: CALCIUM 8.5 mg/dL (8.8-10.2); POTASSIUM 3.6 mmol/L (3.5-5.1)
[2018-11-28] MEDS: HUMALOG SUBQ SCH ×4 (06:02→20:31)
--- NOTE | 2018-11-28 07:01 | Diag Imaging Result Doc PS360 ---
EXAM: CHEST-PORTABLE 11/28/2018 HISTORY: vent TECHNIQUE: AP portable at 0506 COMMENT: The inspiration is less optimal than on 11/27/2018. The endotracheal and NG tubes have been removed. There is probable subsegmental atelectasis in both lower lobes. IMPRESSION: Bibasilar atelectasis. Poor inspiration. Electronically signed by Garth Crews 11/28/2018 6:58 AM
--- NOTE | 2018-11-28 09:33 | PROGRESS NOTE ---
DATE: 11/28/2018 SUBJECTIVE: I spoke at length with the patient's son yesterday. He related several incidents over the past month, where the patient either denied doing something or was unaware that she was doing things in the house. She was very disoriented. He has no idea about her level of glycemic control or whether hypoglycemia played a part in her episodic confusion. He could not identify any psychosocial stressors which may have driven her to try and end her own life. Dr. Quintana's notes were reviewed. She was taken off the ventilator yesterday, and was on BiPAP for a while, and now is on an aerosol face mask. She does not respond in a meaningful fashion to my exam. OBJECTIVE: Vital Signs: Temperature at 3 a.m. was 99.3, pulse rate is 87, respirations 20 at the time of my examination, blood pressure 141/63, the patient is 100% saturated on mask. HEENT: The sclerae are anicteric. The patient does not respond to sternal rub in any meaningful fashion. She does stir a little bit and moves spontaneously, but makes no response to verbal or tactile stimuli. Lungs: Sound very rough and coarse throughout the respiratory cycle. She is not frankly wheezing, and is moving air fairly well. Cardiovascular: Regular at 87 beats per minute on the monitor. Extremities: No peripheral edema. LABORATORY DATA: White cell count is 10.2, hematocrit 29.4. ABG showed a pH of 7.31, pCO2 of 40, PO2 of 198. This was taken on BiPAP, and she has since been put on aerosol face mask. BUN 17, creatinine 1.0. Blood sugar has been variable, but mostly in the [id number] 100s, which is more than acceptable. Sputum culture shows sparse growth with normal sahara. Urine culture is pending. ASSESSMENT AND PLAN: 1. The patient remains obtunded. She had a slight response to Romazicon yesterday. Neurology has been consulted. 2. The patient is off the ventilator. Her lungs sound kind of junky this morning. 3. The patient is on very broad-spectrum antibiotics. Urine was sent for culture, but is pending, and we have to be aware of possible lung infection as well. 4. The patient's diabetes has been reasonably well controlled on sliding scale. She is obviously nothing by mouth due to her obtundation. 5. I will speak again with the patient's son for updates. cc: Isaac Palacio MD
--- NOTE | 2018-11-28 10:05 | PULMONOLOGY PROGRESS NOTE ---
DATE: 11/28/2018 SUBJECTIVE: Patient was successfully extubated last evening. She remains on a face mask. She has no increased work of breathing. She is intermittently combative. She will not respond to and voice. OBJECTIVE: Vital Signs: Blood pressure 129/72, heart rate 88, respiratory rate 16, oxygen saturation 100%. HEENT pupils are equal and reactive. Oropharynx appears clear. Neck is supple. Chest reveals occasional crackles in the lung bases. Cardiac exam S1-S2. Abdomen is soft. Extremities are without edema. LABORATORIES: White blood count 10.28, hemoglobin 9.5, platelet count 187,000. Sodium 143, potassium 3.6, chloride 110, bicarbonate 22, BUN 17, creatinine 1.0, glucose of 188. Arterial blood gas reveals a pH 7.31, pCO2 of 40, PO2 of 198. Chest x-ray reveals basilar atelectasis with shallow inspiration. Microbiology reveals no new data. IMPRESSION: 73-year-old with: 1. Acute respiratory failure. 2. Fevers, which appeared to be subsiding. 3. Altered mental status. 4. Presumptive drug overdose. DISCUSSION: 73-year-old with problems outlined above. I did briefly discussed the case with Dr. Das last evening. She continues to have altered mental status. It has been greater than 60 hours since her ingestion and she continues to remain altered. PLAN: 1. Continue supportive care with oxygen and BiPAP p.r.n. 2. Avoid sedating medicines. 3. Continue broad-spectrum antibiotics. 4. Will ask Neurology to evaluate this morning. cc: MD Isaac Jay MD
--- NOTE | 2018-11-28 15:30 | CONSULTATION ---
DATE OF CONSULTATION: 11/28/2018 REASON FOR CONSULT: Altered mental status, overdose. HISTORY OF PRESENT ILLNESS: This is a 73-year-old, female with a history of depression, anxiety, hypertension, diabetes, and hyperlipidemia who was admitted on 11/25/2018 at the [facility] for altered mental status. History is from chart review as the patient cannot provide a history and there is currently no family available. Apparently, the patient was seen the night prior as well as early the morning of and she appeared well. They left her alone for some time, though they spoke to her on the phone around 11 o'clock. They arrived after noon sometime and found the patient lying on the floor on top of a pill bottle. They felt she was barely breathing. EMS was called. Narcan did not have any affect. The daughter noted that the patient had 5 separate bottles of Ativan with different dates. They are unsure if the patient took the pills or not. They did note that she had been depressed and occasionally talked about wanting to see her mother who had several years ago. The patient was admitted and actually required intubation just before that as her respiratory status continued to decline. She was transferred to [facility] subsequently. Head CT did not show acute findings. The patient was extubated successfully late last night. It looks like this morning, she was not really responding to sternal rub but stirred a little bit spontaneously. There was no response to verbal or tactile stimuli. There was mention of a slight response to a low dose of Romazicon yesterday. She had some fever yesterday but none today. Toxicology was presumptive positive for benzodiazepines on admission. Urinalysis was suspicious for a urinary tract infection but the culture did not grow. She may have received some antibiotics prior to that. PAST MEDICAL HISTORY: Includes depression, anxiety, hypertension, hyperlipidemia, diabetes, and cataract surgery. FAMILY HISTORY: Noncontributory. SOCIAL HISTORY: She does not smoke or drink alcohol. ALLERGIES: No known drug allergies listed. HOME MEDICATIONS: Include lisinopril, lorazepam, Pravachol, Zoloft, insulin, Robaxin. REVIEW OF SYSTEMS: Unobtainable due to patient's mental status. PHYSICAL EXAMINATION: Vital Signs: She has been afebrile all day today. Her blood pressure 144/76, pulse 90s, respirations 18. Ms. Mnoteiro is supine in bed, squirming around pretty consistently. She has her eyes closed. She does not follow commands. She frequently and appropriately yells to tell me to stop or to leave her alone when I apply noxious stimuli during examination. At one point, she opened her eyes and appeared to look my way. She actively resists passive eye opening. Pupils appear equal, round, and reactive to bright light. They are miotic. There is horizontal eye movement with passive head turning. Visual ruby are difficult to assess in her current agitated state. Face appears symmetric with equal grimace. Corneal responses are present bilaterally. Tone is equal in the limbs. She is seen to move all of her extremities at least against gravity and seems to pull and resist my passive movement of all of her limbs. This is symmetric without obvious focal deficit. She responds to noxious stimuli in all extremities. There is no clonus. Plantar response is downgoing bilaterally. Reflexes trace at the ankles, 1 to 2+ at the knees, 1 to 2+ at the biceps. DIAGNOSTICS: Head CT, noncontrast, no acute findings. This was personally reviewed. Chest x-ray showing bibasilar atelectasis. Normal white count since her arrival. Normal sodium, BUN, and creatinine. Blood sugars 120s to 220s. Calcium of 8.5. AST and ALT are low. Urinalysis is suspicious for infection. Toxicology is negative except presumptive positive for benzodiazepines. Serum ethyl alcohol 0. ASSESSMENT AND PLAN: Global encephalopathy with suspicion for lorazepam drug overdose. There was accompanying acute respiratory failure with intubation, though she has tolerated recent extubation. There were fevers yesterday, though none so far today. White count has remained normal. Clinically, it seems that she has made some improvement and has gone from being obtunded to somewhat agitated during my time at the bedside. I would continue supportive care and treating any underlying infections. Avoid sedating medications as able. I am going to order a routine EEG to look for subclinical seizure activity or increased propensity to seizure. If she begins to spike temperatures again without obvious source of infection, then we may need to consider lumbar puncture. Thank you for the consultation. cc: MD Isaac Reyes MD MTDD
[2018-11-28] MEDS: TYLENOL PR PRN (23:49)
[2018-11-29] MEDS ORDERED: GEODON IM ONE (02:12)
[2018-11-29] MEDS ORDERED: STERILE WATER INJ. INJ ONE (02:12)
[2018-11-29] MEDS: DUONEB (A & A) INH SCH ×6 (02:34→23:51)
[2018-11-29] MEDS: SODIUM CHLORIDE 0.9% INJ SCH (05:03)
[2018-11-29] MEDS: PROTONIX IV SCH ×2 (05:03→21:45)
[2018-11-29] MEDS: ZOSYN 3.375 GM in NS 50 ML IV SCH ×3 (05:03→20:47)
[2018-11-29] MEDS: HUMALOG SUBQ SCH ×4 (06:15→20:52)
[2018-11-29] MEDS: VANCOMYCIN 1,100 MG in NS 250 ML IV SCH (08:37)
--- NOTE | 2018-11-29 13:08 | PROGRESS NOTE ---
DATE: 11/29/2018 SUBJECTIVE: Ms. Monteiro has global encephalopathy. Dr. Barrera saw her earlier this week. There is presumed lorazepam overdose with intoxication. She presented with very poor responsiveness. She seems to be slightly improved in recent days. She has been more spontaneous with movement but not attentive to communication. She has mildly elevated blood sugar, otherwise unremarkable chemistry. Urine drug screen was positive only for benzodiazepine. Noncontrast CT of the head 11/25/2018 was unremarkable. EEG is in progress. She has been afebrile for the last 48 hours. She had some relatively low-grade fever a few days ago. OBJECTIVE: On exam today, she is awake, seems alert, spontaneously looking around the room, turning head left and right, conjugate gaze left and right, moving all limbs spontaneously. Limb tone is symmetric. There is no meningismus. She looked at the source of voice when I called her name but she did not follow instructions or communicate beyond that. ASSESSMENT AND PLAN: Discussed with family friend at the bedside. Not certain what has been her baseline lorazepam dose. Conceivably, she does not have high benzodiazepine tolerance, took a very high dose of benzodiazepine and may have long half-life with her low tolerance. Not certain that there is no other factor with her encephalopathy, but no clear evidence of anything else. I will check on the EEG and follow. No urgent suggestion from neurology standpoint today. Thanks for asking us to see Ms. Monteiro. cc: MD Isaac Bonds III, MD MTDD
--- NOTE | 2018-11-29 20:31 | PROGRESS NOTE ---
DATE: 11/29/2018 SUBJECTIVE: The patient is still not very responsive. She moves spontaneously in the bed. She did require some type of sedation last night, at about 2 a.m., which is somewhat unfortunate because we are trying to lav crewman her level of alertness. OBJECTIVE: Vital Signs: 97.9, 97, 20, 100% saturated on 2 L nasal cannula. General: The patient responds slightly to painful stimuli, but is mumbling, has her eyes closed, and does not follow commands. Lungs: The patient's lungs are better than yesterday. She is clear at the time of my examination. Cardiovascular: Bordering on tachycardia, but appeared regular on the monitor. LABORATORY: There was no laboratory drawn today. Blood sugars are reasonably controlled with sliding scale insulin. ASSESSMENT AND PLAN: 1. The patient's overall mental status has not improved. We will continue to monitor. Neurology is following. 2. The patient is off the ventilator. She is saturating reasonably well. Her lungs are improved this morning. 3. The patient had a urinary tract infection, but urine culture did not grow anything because the urine culture was obtained after antibiotics were already started. She is on broad-spectrum antibiotic to cover the urinary tract infection and possible lung infection. 4. The patient's diabetes has been reasonably well controlled on sliding scale. 5. Dr. Das spoke with the patient's family this afternoon. cc: Isaac Palacio MD
[2018-11-29] MEDS: APRESOLINE IV PRN (20:47)
--- NOTE | 2018-11-29 21:01 | PULMONOLOGY PROGRESS NOTE ---
DATE: 11/29/2018 SUBJECTIVE: The patient does periodically open her eyes. She will not follow commands. OBJECTIVE: Blood pressure 148/75, heart rate 97, respiratory rate 15, oxygen saturation 100%. HEENT: Pupils are equal and reactive. Oropharynx appears clear. Neck is supple. Chest reveals good air entry without wheezing or rhonchi. Cardiac exam: S1, S2. Abdomen is soft. Extremities without edema. IMPRESSION: A 73-year-old with: 1. Acute hypoxemic respiratory failure. 2. Fevers which have resolved. 3. Encephalopathy, possibly drug-induced. 4. Presumptive suicide attempt. PLAN: 1. Continue supportive care. 2. Wean oxygen as tolerated. 3. The patient will need a Psychiatry evaluation prior to discharge. cc: MD Isaac Jay MD
[2018-11-30] MEDS: ZOSYN 3.375 GM in NS 50 ML IV SCH ×4 (02:02→19:32)
[2018-11-30] MEDS: APRESOLINE IV PRN (02:50)
[2018-11-30] MEDS: DUONEB (A & A) INH SCH ×5 (03:22→21:05)
[2018-11-30 06:18] LABS: BASO# 0.09 X1000 (0.0-0.2); BASO% 0.8 % (0.0-0.8); EOS# 0.09 X1000 (0.0-0.7); EOS% 0.8 % (0.0-10.0); HEMATOCRIT 35.9 % (37.0-47.0); HEMOGLOBIN 11.6 g/dL (12.0-16.0); IMM GRAN# 0.06 X1000 (0.0-0.04); IMM GRAN% 0.5 % (0.0-0.5); LYMPH# 0.94 X1000 (1.2-3.4); LYMPH% 8.5 % (20.5-51.1); MCH 29.7 PG (27-31); MCHC 32.3 g/dL (33-37); MCV 91.8 FL (81-99); MONO# 0.86 X1000 (0.11-0.59); MONO% 7.8 % (1.7-9.3); MPV 10.6 FL (7.4-10.4); NEUT# 8.96 X1000 (1.4-6.5); NEUT% 81.6 % (42.2-75.2); PLT 293 X1000 (130-400); RBC 3.91 XMIL (4.2-5.4); RDW 13.5 % (11.5-14.5)
[2018-11-30 06:19] LABS: CALCIUM 9.9 mg/dL (8.8-10.2); CREATININE 1.1 mg/dL (0.5-0.9); POTASSIUM 3.6 mmol/L (3.5-5.1)
[2018-11-30] MEDS: HUMALOG SUBQ SCH ×4 (07:17→19:30)
[2018-11-30] MEDS ORDERED: 1/2 NS 1,000 ML IV ONE (08:21)
[2018-11-30] MEDS ORDERED: 1/2 NS 1,000 ML IV SCH (08:30)
[2018-11-30] MEDS: PROTONIX IV SCH ×2 (08:36→20:07)
[2018-11-30] MEDS: SODIUM CHLORIDE 0.9% INJ SCH ×2 (08:36→20:07)
--- NOTE | 2018-11-30 08:48 | PROGRESS NOTE ---
DATE: 11/30/2018 SUBJECTIVE: The patient was asleep when I entered the room. She aroused fairly easily. She opened her eyes. She was able to identify her own name. She recognized me and told me my name. When I asked her what happened to her, she said she did not know. OBJECTIVE: Vital Signs: Temperature 98.6 degrees, pulse rate is 123 on the monitor. Blood pressure was 146/73 on the monitor at the time of my examination. Physical Examination: The patient had reasonable air movement. She did not have any wheezing. Cardiovascular: Regular tachycardia. Neuropsychiatric: The patient is arousable and when aroused is alert and knows her name. Laboratory: White cell count is 11,000, hematocrit 35.9. Serum sodium is 155, carbon dioxide is 13, BUN is 16, creatinine 1.1. Her latest blood sugars have been trending upward in the upper 100s and as high as 246. ASSESSMENT AND PLAN: 1. The patient's mental status is improved today. I was impressed that she was able to be aroused and recognized me. Neurology is following. 2. Patient is off the ventilator. She is saturating reasonably well and her lung exam is fairly stable. We have decreased her aerosol treatments to 3 times a day. 3. The patient has been treated for a urinary tract infection with broad spectrum antibiotics. The possibility of lung infection was also entertained. 4. The patient's diabetes is reasonably well controlled. We will continue sliding scale insulin. 5. The patient's sodium is markedly elevated today. She had a lab holiday yesterday and her sodium went up. She is clearly volume depleted and hemoconcentrated, according to all the labs, despite the fact that she has a normal blood pressure and blood pressure is actually sometimes accelerated. Plan to give her half-normal saline bolus and then run some half- normal in a continuous rate for a day or so to try and alleviate some of that water deficit. We will recheck labs in the morning. cc: Isaac Palacio MD
--- NOTE | 2018-11-30 11:21 | PROGRESS NOTE ---
DATE: 11/30/2018 Ms. Monteiro is awake and alert, squirming, using all of her limbs purposefully, turning her head left to right, moving eyes spontaneously left to right and back to left. She answered a few simple questions. Speech is dysarthric, but can be understood. She was not attentive to more extensive language testing. I do not have any new history and no new thoughts or new suggestions today from Neurology. I hope she will continue to improve. Features are consistent with protracted encephalopathy following large lorazepam dose in a patient with low benzodiazepine tolerance. Thanks for asking Neurology to see Ms. Monteiro. cc: MD Isaac Bonds III, MD MTDD
[2018-11-30] MEDS ORDERED: STERILE WATER INJ. INJ PRN (13:38)
[2018-11-30] MEDS ORDERED: GEODON IM PRN (13:38)
--- NOTE | 2018-11-30 14:14 | PULMONOLOGY PROGRESS NOTE ---
DATE: 11/30/2018 SUBJECTIVE: The patient is now arousable to alert. She will not follow commands. She will interact with examiner. OBJECTIVE: Vital Signs: Blood pressure 105/71, heart rate 112, respiratory rate 26, oxygen saturation 97% on 2 L per nasal cannula. HEENT: Pupils are equal and reactive. Oropharynx is dry but clear. Neck is supple. Chest reveals shallow breath sounds without wheezing or rhonchi. Cardiac exam: S1, S2. Abdomen is soft. Extremities without edema. LABORATORIES: Sodium 155, potassium 3.6, chloride 113, bicarbonate 13, anion gap 29, BUN 16, creatinine 1.1, glucose 217. White blood count 11.0, hemoglobin 11.66, platelet count 293,000. IMPRESSION: 1. 73-year-old with acute hypoxemic respiratory failure. 2. Encephalopathy, probably drug induced. 3. Increased anion gap acidosis with history of diabetes mellitus. 4. Hypernatremia. RECOMMENDATIONS: 1. Continue antibiotic regimen. 2. Wean oxygen as tolerated. 3. Anticipate need for psychiatry evaluation due to suicide attempt. 4. Agree with hydration given hypernatremia. The patient also has an anion gap and likely needs additional insulin, but her sugar is marginal. We will add glucose to her half-normal saline. cc: MD Isaac Jay MD
[2018-11-30] MEDS: ATIVAN IV PRN ×2 (14:15→19:03)
[2018-11-30] MEDS: D5 1/2 NS 1,000 ML IV SCH (14:15)
[2018-11-30] MEDS: VANCOMYCIN 1,100 MG in NS 250 ML IV SCH (20:07)
[2018-12-01] MEDS: ZOSYN 3.375 GM in NS 50 ML IV SCH ×4 (01:07→19:55)
[2018-12-01] MEDS: HUMALOG SUBQ SCH ×7 (01:08→23:27)
[2018-12-01] MEDS: ATIVAN IV PRN (02:19)
[2018-12-01] MEDS: D5 1/2 NS 1,000 ML IV SCH ×2 (02:21→16:58)
[2018-12-01] MEDS: DUONEB (A & A) INH SCH ×4 (03:05→21:01)
[2018-12-01 06:44] LABS: BASO# 0.05 X1000 (0.0-0.2); BASO% 0.6 % (0.0-0.8); EOS# 0.14 X1000 (0.0-0.7); EOS% 1.8 % (0.0-10.0); HEMATOCRIT 31.7 % (37.0-47.0); HEMOGLOBIN 10.3 g/dL (12.0-16.0); LYMPH# 1.17 X1000 (1.2-3.4); LYMPH% 15.2 % (20.5-51.1); MCH 30.4 PG (27-31); MCHC 32.5 g/dL (33-37); MCV 93.5 FL (81-99); MONO# 0.75 X1000 (0.11-0.59); MONO% 9.7 % (1.7-9.3); MPV 10.2 FL (7.4-10.4); NEUT# 5.61 X1000 (1.4-6.5); NEUT% 72.7 % (42.2-75.2); PLT 286 X1000 (130-400); RBC 3.39 XMIL (4.2-5.4); RDW 13.7 % (11.5-14.5); WBC 7.72 X1000 (4.8-10.8)
[2018-12-01 06:48] LABS: CALCIUM 9.3 mg/dL (8.8-10.2); CREATININE 1.1 mg/dL (0.5-0.9); POTASSIUM 3.5 mmol/L (3.5-5.1)
[2018-12-01 07:01] LABS: MAGNESIUM 1.8 mg/dL (1.5-2.7); PHOSPHORUS 2.4 mg/dL (2.7-4.5)
--- NOTE | 2018-12-01 07:29 | Diag Imaging Result Doc PS360 ---
CHEST-PORTABLE - 12/01/2018 INDICATION: abnormal exam COMPARISON: 11/28/2018 FINDINGS: Lung volumes are improved with improvement of the nonspecific atelectasis or infiltrate at the roya bilaterally. No new infiltrates. No pneumothorax or pleural effusion. Heart size is top normal. IMPRESSION: Improvement from prior. Electronically signed by Bharath Salazar 12/01/2018 7:27 AM
[2018-12-01] MEDS: PROTONIX IV SCH ×2 (08:25→20:00)
--- NOTE | 2018-12-01 12:51 | PROGRESS NOTE ---
DATE: 12/01/2018 SUBJECTIVE: Ms. Monteiro has continued slowly improving. Later in the day yesterday, I spoke with son and [id number] by phone. They provided clear history of forgetfulness and possibly some personality change in recent months, possibly longer. Son reported the patient collected all of her pills and then sat at her mother's grave and gave family the impression that she was contemplating medication overdose then. (The patient's mother had with dementia some time ago.) Family was not able to provide me with any new information regarding how many lorazepam tablets she ingested prior to being found unresponsive several days ago, and there is no new history regarding possibility of other inappropriate medication use. OBJECTIVE: Ms. Monteiro is a little bit more easily waked today. She was more consistently alert and more consistently attentive to me at the bedside. She followed some simple instructions, but did not follow commands requiring right/left distinction or digit distinction. She said her name, and I could understand her words. She identified this correctly as a hospital. Head and neck are unremarkable. There is no meningismus. Limb tone continues symmetric. IMPRESSION: 1. Global encephalopathy. Likely lorazepam overdose, probably intentional. No definite evidence of any other acute encephalopathy. She seems to be improving day by day. 2. Baseline cognitive impairment. We can anticipate more protracted recovery and increased risk for incomplete recovery. I discussed that frankly with family. 3. Question of suicidal behavior, gesture vs attempt. I do not have any suggestions right now. We might consider repeat imaging and other workup later depending on her clinical course. Thanks for asking Neurology to see Ms. Monteiro. cc: MD Isaac Bonds III, MD MTDD
[2018-12-01] MEDS: SODIUM CHLORIDE 0.9% INJ SCH (20:00)
[2018-12-02] MEDS: ZOSYN 3.375 GM in NS 50 ML IV SCH ×4 (01:06→21:12)
[2018-12-02] MEDS: DUONEB (A & A) INH SCH ×4 (03:18→21:21)
[2018-12-02] MEDS: HUMALOG SUBQ SCH ×6 (03:26→23:40)
[2018-12-02] MEDS: D5 1/2 NS 1,000 ML IV SCH ×2 (06:06→17:48)
[2018-12-02] MEDS: PROTONIX IV SCH ×2 (08:27→21:11)
[2018-12-02] MEDS: APRESOLINE IV PRN (11:13)
[2018-12-02] MEDS: VANCOMYCIN 1,100 MG in NS 250 ML IV SCH (12:49)
--- NOTE | 2018-12-02 16:56 | PROGRESS NOTE ---
DATE: 12/02/2018 This is a 73-year-old who presented to the hospital in the emergency room. She was lethargic and sedated, altered mental status. [id number] notes that she was seen early the previous night and she appeared to have no issues. They had left the house for errands, per Mrs. Monteiro's phone she had talked to her around 11 o'clock. Family arrived back in time sometime afternoon and Ms Monteiro was lying on the floor stiff lying with a pill bottle which apparently cut the side of her face. Daughter notes that upon initial evaluation she was afraid Ms. Monteiro was however at close enough she could she was barely breathing. They called the ambulance, brought to the emergency room, ambulance they tried to give her Narcan on to no avail. The daughter notes that she had 5 separate bottles of Ativan different dates with the most distant date 2014, unaware if she took pills, if so how much so admitted to the hospital altered mental status likely from drug overdose with benzodiazepine. Not sure if incidental, intentional at the beginning. Pulmonary was consulted, found as above per her family unresponsive. Admitted for observation but developed progressive apnea, obtundation required intubation. The patient underwent CT of the head which was negative for acute changes. PAST MEDICAL HISTORY: Depression, anxiety, hypertension, hyperlipidemia, diabetes mellitus. They were able to extubate her, put her on BiPAP. Her respiratory status is improved. Dr. Das was asked to see, global encephalopathy likely, lorazepam overdose probably intentional. No evidence of other acute encephalopathy. She did have some baseline cognitive impairment and can anticipate more protracted recovery. Question of suicidal behavior. Continue antibiotic regimen. She had some hypernatremia, adjusted fluids. EXAM: Today awake and alert, oriented, pleasant. She is oriented x3. Temperature 97.8 degrees, pulse 100, respirations 20, blood pressure 171/85, blood pressure had been running between 109 and 175 over 61 to 85. Pupils are equal round.Lungs: Clear in all lung ruby. Cardiovascular: Regular rhythm and rate without murmur or S3. Abdomen: Soft. Skin: Warm and dry. Urine output 1900 mL. ASSESSMENT AND PLAN: Mental status is improved. Was able to arouse and recognize. Pulmonology has been following. Patient off the ventilator. Treated for urinary tract infection with broad- spectrum antibiotics. The patient's diabetes was reasonably controlled. Patient's sodium we have been following and volume status. Sodium was 150 yesterday so will recheck basic metabolic profile,I may check a Chem 22 and magnesium and CBC. I think we will check her thyroid, B12 and folate too. cc: MD Isaac Gregg MD [facility]
[2018-12-03] MEDS: ZOSYN 3.375 GM in NS 50 ML IV SCH ×4 (01:39→22:21)
[2018-12-03] MEDS: DUONEB (A & A) INH SCH ×4 (03:03→20:10)
[2018-12-03] MEDS: HUMALOG SUBQ SCH ×5 (03:26→22:22)
[2018-12-03 04:51] LABS: ALLEN TEST YES; BE -0.3 mmoll (-3.0-3.0); BLOOD TYPE ARTERIAL; HCO3-(ACT) 24.7 mmoll (20.0-26.0); METHB 0.9 % (0.0-1.5); O2(CT) 10.2 mL/dL (15.0-23.0); O2HB 97.1 % (95.0-99.0); PCO2(98.6) 29 mmHg (35-45); PO2(98.6) 126 mmHg (60-100); SAMPLE BLOOD; SAO2 98.9 % (95.0-100.0); THB 7.3 g/dL (11.5-17.4)
[2018-12-03 04:52] LABS: MODALITY ROOM AIR
[2018-12-03 05:08] LABS: BASO# 0.06 X1000 (0.0-0.2); BASO% 1.3 % (0.0-0.8); EOS# 0.18 X1000 (0.0-0.7); EOS% 3.9 % (0.0-10.0); HEMOGLOBIN 10.4 g/dL (12.0-16.0); IMM GRAN# 0.03 X1000 (0.0-0.04); IMM GRAN% 0.6 % (0.0-0.5); LYMPH# 0.87 X1000 (1.2-3.4); LYMPH% 18.6 % (20.5-51.1); MCH 29.4 PG (27-31); MCHC 33.5 g/dL (33-37); MCV 87.6 FL (81-99); MONO# 0.38 X1000 (0.11-0.59); MONO% 8.1 % (1.7-9.3); MPV 10.2 FL (7.4-10.4); NEUT# 3.15 X1000 (1.4-6.5); NEUT% 67.5 % (42.2-75.2); PLT 251 X1000 (130-400); RBC 3.54 XMIL (4.2-5.4); RDW 13.1 % (11.5-14.5); WBC 4.67 X1000 (4.8-10.8)
[2018-12-03 05:20] LABS: ALB/GLOB RATIO 0.9; ALBUMIN 2.7 g/dL (3.5-5.0); CALCIUM 8.6 mg/dL (8.8-10.2); CREATININE 1.1 mg/dL (0.5-0.9); MAGNESIUM 1.4 mg/dL (1.5-2.7); TOTAL BILIRUBIN 0.27 mg/dL (0.20-1.00); TOTAL PROTEIN 5.6 g/dL (6.3-8.3)
[2018-12-03 05:30] LABS: POTASSIUM 2.5 mmol/L (3.5-5.1)
[2018-12-03 05:45] LABS: FREE T4 1.13 ng/dL (0.93-1.70); TSH 4.89 uIUmL (0.27-4.20)
[2018-12-03] MEDS: POTASSIUM CHLORIDE 20 MEQ/SWI 20 MEQ/100 ML IVPB IV SCH ×2 (06:33→08:00)
[2018-12-03] MEDS ORDERED: MAGNESIUM SULFATE 2 GM/S.W.I. 2 GM/50 ML IVPB IV ONE (07:30)
--- NOTE | 2018-12-03 07:57 | PROGRESS NOTE ---
DATE: 12/03/2018 SUBJECTIVE: Ms. Monteiro was resting comfortably, sleeping. Her magnesium was low. She is still on one-on-one observation. OBJECTIVE: Temperature 98.6 degrees, pulse 90, respirations 10, blood pressure 155/79. Pupils are equal and round. No distended neck veins. Lungs are clear in all lung ruby. Cardiovascular Examination: Regular rhythm and rate without murmur or S3. Abdomen is soft. Skin is warm and dry. Urine output is 3000 mL. ASSESSMENT AND PLAN: 1. Mental status improved, awake. She does have one-on-one observation. Being treated for a urinary tract infection with broad-spectrum antibiotics. Sputum culture nonspecific, urine culture with no growth at this time. I suspect benzodiazepine overdose. 2. Current medications, albuterol-ipratropium 3 mL every 4 hours as needed, normal saline at 75 mL an hour. I will supplement her magnesium with 2 g of magnesium intravenous now and some magnesium sulfate by mouth. She is on vancomycin 1100 mg every 24 hours and she is on piperacillin 3.375 g every 6 hours. Note, her acidosis improved. We will supplement her potassium and magnesium. I am going to move her to a regular floor. cc: MD Isaac Gregg MD
[2018-12-03] MEDS: D5 1/2 NS 1,000 ML IV SCH (08:00)
[2018-12-03] MEDS: PROTONIX IV SCH ×2 (08:00→22:21)
[2018-12-03] MEDS: MAG-OX PO SCH ×2 (09:33→22:21)
[2018-12-03] MEDS: VANCOMYCIN 1,100 MG in NS 250 ML IV SCH (13:13)
[2018-12-03] MEDS: SODIUM CHLORIDE 0.9% INJ SCH (22:21)
[2018-12-04] MEDS: HUMALOG SUBQ SCH ×5 (00:14→16:45)
[2018-12-04] MEDS: ZOSYN 3.375 GM in NS 50 ML IV SCH (02:35)
[2018-12-04] MEDS: DUONEB (A & A) INH SCH ×3 (05:07→16:30)
[2018-12-04] MEDS: MAG-OX PO SCH (08:29)
[2018-12-04] MEDS: PROTONIX IV SCH (08:29)
[2018-12-04] MEDS: SODIUM CHLORIDE 0.9% INJ SCH (08:30)
[2018-12-04] MEDS ORDERED: PRINIVIL PO SCH (09:00)
[2018-12-04] MEDS ORDERED: ZOLOFT PO SCH (09:00)
[2018-12-04] MEDS ORDERED: LEVEMIR SUBQ SCH (09:00)
[2018-12-04] MEDS ORDERED: INSULIN PEN NEEDLES ONE (09:47)
[2018-12-04 14:19] LABS: AGAP 11; BUN 14 mg/dL (8-22); CALCIUM 8.5 mg/dL (8.8-10.2); CHLORIDE 101 mmol/L (98-107); COSMO 279; CREATININE 0.9 mg/dL (0.5-0.9); ESTIMATED GFR > 60; GLUCOSE 251 mg/dL (70-104); MAGNESIUM 1.9 mg/dL (1.5-2.7); POTASSIUM 3.1 mmol/L (3.5-5.1); SODIUM 135 mmol/L (136-145); TCO2 23 mmol/L (25-35)
[2018-12-04] MEDS ORDERED: KLOR-CON PO ONE (15:45)
[2018-12-04] MEDS ORDERED: COREG PO ONE (15:47)
--- NOTE | 2018-12-04 18:12 | PULMONOLOGY PROGRESS NOTE ---
DATE: 12/04/2018 SUBJECTIVE: The patient is awake, alert, and conversant. She is being prepared for a transfer to [facility]. OBJECTIVE: Vital Signs: Blood pressure 158/109, heart rate 93, respiratory rate 20, oxygen saturation 100% on room air. HEENT: Pupils are equal and reactive. Oropharynx is clear. Neck: Supple. Chest: Reveals mild prolonged expiratory phase. No wheezing or rhonchi. Cardiac: S1, S2. Abdomen: Soft. Extremities: Without edema. IMPRESSION: 1. Benzodiazepine overdose. 2. Encephalopathy, which is resolving. 3. Diabetes mellitus. 4. Respiratory failure. RECOMMENDATIONS: 1. Anticipate transfer to [facility] for intentional drug overdose. 2. Continue bronchial hygiene. 3. No additional recommendations. Will sign off. Thank you for allowing me to participate in the care of Ms. Monteiro. cc: MD Isaac Jay MD
[2018-12-04 19:30] VITALS: BP 180/80
[2018-12-04] MEDS ORDERED: PRAVACHOL PO SCH (21:00)
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
--- NOTE | 2018-12-05 11:41 | EEG REPORT ---
DATE: 11/28/2018 EEG: REFERRING: Dr. Annetta Barrera. USER EXPERIENCE ARCHITECT: Liborio Merrill. BACKGROUND INFORMATION/TECHNIQUE: This is a digitally recorded portable routine EEG with video. HISTORY: A 73-year-old female patient admitted for altered mental status. EEG is ordered to detect evidence of seizures. Medications include lorazepam and Zoloft. EEG FINDINGS: A posterior dominant alpha rhythm is not seen. The background consists of theta- delta slowing with some intermixed faster frequencies at times. Frontal intermittent rhythmic delta activity (FIRDA) is seen throughout the record. No definite persistent focal slowing. No epileptiform discharges. No seizures. Hyperventilation was not performed. Photic stimulation does not alter the record. No definite drowsiness patterns. Stage II sleep is not seen. The EKG demonstrates regular RR intervals. IMPRESSION AND CLINICAL CORRELATION: Abnormal routine EEG due to moderate generalized slowing with FIRDA indicative of a moderate nonspecific encephalopathy. No epileptiform discharges or seizures seen on the study. This does not rule out an underlying seizure disorder. Generalized slowing is a nonspecific finding that can be seen in processes that diffusely affect the cerebrum, including toxic, metabolic, pharmacologic, post hypoxic and infectious etiologies, amongst others. FIRDA is also a nonspecific finding, but can be seen with metabolic encephalopathies and certain midline lesions. cc: MD Isaac Reyes MD
== END 2018-12-04 20:05 | DRG 917 ==
LOC: P.ED 15:06 → SUPCPDRO 16:12 → P.EDIPHOLD 16:12 → SUATTDRO 16:12 → ICU 22:19 → 4N 12-03 14:17
PROVIDERS: ADMIT Internal Medicine; ATTEND Internal Medicine
CPT/HCPCS: 31500; 51702; 70450; 71010; 71045; 80048; 80053; 80104; 80196; 80202; 80301; 80305; 80307; 80320; 80324; 80329; 81001; 82003; 82055; 82607; 82746; 82805; 82948; 83735; 84100; 84439; 84443; 85025; 87070; 87088; 87205; 93005; 93010; 94003; 94640; 94760; 94761; 95816; 96361; 96365; 96375; 99285; 99291; A9270; C9113; G0431; G0434; G0477; G0480; G6038; G6039; G6040; J0330; J0360; J0696; J1815; J2060; J2543; J3370; J3475; J3480; J3486; J7030; J7040; J7050; S0164; XXXXX

== ENCOUNTER 2019-02-08 08:07 | Inpatient (IN) ==
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
[2019-02-08 08:53] LABS: URINE SOURCE CATH
[2019-02-08 09:03] LABS: BILIRUBIN URINE NEGATIVE (NEGATIVE); BLOOD URINE MODERATE (NEGATIVE); COLOR YELLOW; GLUCOSE URINE >1000 mg/dL (NEGATIVE); KETONE URINE 20 mg/dL (NEGATIVE); LEUKOCYTES URINE NEGATIVE (NEGATIVE); NITRITE URINE NEGATIVE (NEGATIVE); PROTEIN URINE 300 mg/dL (NEGATIVE); SP GRAVITY URINE 1.022; TURBIDITY URINE CLEAR (CLEAR); UROBILINOGEN URINE NORMAL (NORMAL)
[2019-02-08 09:03] LABS: BASO# 0.06 X1000 (0.0-0.2); BASO% 0.2 % (0.0-0.8); EOS# 0.01 X1000 (0.0-0.7); HEMATOCRIT 36.2 % (37.0-47.0); HEMOGLOBIN 12.8 g/dL (12.0-16.0); IMM GRAN# 0.13 X1000 (0.0-0.04); IMM GRAN% 0.5 % (0.0-0.5); LYMPH# 1.39 X1000 (1.2-3.4); LYMPH% 5.7 % (20.5-51.1); MCH 29.9 PG (27-31); MCHC 35.4 g/dL (33-37); MCV 84.6 FL (81-99); MONO% 4.9 % (1.7-9.3); MPV 11.8 FL (7.4-10.4); NEUT# 21.53 X1000 (1.4-6.5); NEUT% 88.7 % (42.2-75.2); RBC 4.28 XMIL (4.2-5.4); RDW 12.8 % (11.5-14.5); WBC 24.32 X1000 (4.8-10.8)
[2019-02-08 09:04] LABS: ALLEN TEST YES; BE -11.1 mmoll (-3.0-3.0); BLOOD TYPE ARTERIAL; HCO3-(ACT) 16.2 mmoll (20.0-26.0); METHB 1.4 % (0.0-1.5); O2(CT) 16.9 mL/dL (15.0-23.0); O2HB 95.6 % (95.0-99.0); PCO2(98.6) 22 mmHg (35-45); PO2(98.6) 95 mmHg (60-100); SAMPLE BLOOD; SAO2 97.5 % (95.0-100.0); THB 12.5 g/dL (11.5-17.4); pH(98.6) 7.36 (7.35-7.45)
[2019-02-08 09:05] LABS: MODALITY ROOM AIR
[2019-02-08 09:05] LABS: UR EPITHELIAL CELLS <10 /HPF (<10); URINE BACTERIA NEGATIVE /HPF; URINE RBC <10 /HPF (<10); URINE WBC <10 /HPF (<10)
[2019-02-08 09:16] LABS: INR 0.96; PROTIME 13.6 Seconds (11.0-16.0); PTT 28.3 Seconds (22.3-41.8)
--- NOTE | 2019-02-08 09:30 | Diag Imaging Result Doc PS360 ---
EXAM: CHEST-PORTABLE 02/08/2019 HISTORY: altered MSE TECHNIQUE: AP portable upright at 0921 COMMENT: The inspiration is better than on the previous study of 12/01/2018. There is no evidence of acute cardiac or pulmonary disease. IMPRESSION: No acute disease. Electronically signed by Garth Crews 02/08/2019 9:27 AM
[2019-02-08 09:33] LABS: ANISOCYTOSIS 1+; BANDS 2 % (0-1); LYMPHS 6 % (21-51); MICROCYTOSIS 1+; MONO 6 % (1-9); POIKILOCYTOSIS 1+; SEGS 86 % (42-75); TARGET CELLS 1+
[2019-02-08 09:34] LABS: PLT 302 X1000 (130-400)
--- NOTE | 2019-02-08 09:37 | Diag Imaging Result Doc PS360 ---
EXAM: CT HEAD/C-SPINE W/O CONTRAST 02/08/2019 HISTORY: FOF< altered TECHNIQUE: This exam was performed using automated exposure control, adjustment of mA or kV according to patient size, and/or use of iterative reconstruction technique. COMMENT: There is no evidence of mass effect, bleed, or abnormal extra-axial fluid collection. Compared to 12/05/2018 there has been no significant change in the appearance of the brain. Cervical spine: There is no evidence of fracture, subluxation, or prevertebral soft tissue swelling. The facets are aligned. There are calcifications in the ligaments around the the odontoid and there is posterior osteophyte formation at the C6-7 level. There is apparent disc bulge at C3-4 C4-5 and C5-6. IMPRESSION: No evidence of acute intracranial or cervical spine disease. Electronically signed by Garth Crews 02/08/2019 9:35 AM
[2019-02-08 09:48] LABS: ALB/GLOB RATIO 1.5; ALBUMIN 4.3 g/dL (3.5-5.0); CREATININE 2.2 mg/dL (0.5-0.9); POTASSIUM 4.5 mmol/L (3.5-5.1); TOTAL BILIRUBIN 0.87 mg/dL (0.20-1.00); TOTAL PROTEIN 7.2 g/dL (6.3-8.3)
[2019-02-08] MEDS ORDERED: NS 1,000 ML IV ONE (09:51)
[2019-02-08] MEDS ORDERED: HUMULIN R IV ONE (09:52)
--- NOTE | 2019-02-08 10:07 | ED EKG INTERP ---
This chart was entered by Bria Lucero Scribe, acting as scribe for Abdirahman Gallego MD. EKG Interpretation - EKG Time of EKG reading by physician:: 09:58 EKG Read and Signed by:: Abdirahman Gallego EKG Interpretation (*Must complete 3 of following elements*): Normal (Borderline) Rate: 119 Rhythm: Sinus tach [place]: normal QRS: other (possible L atrial enlargement) [place] Interval: normal ST Wave: normal Attestation - Physician/ JATIN Attestation Patient care was provided by Advanced Practice Provider:: No The physician spent face to face time with patient:: Yes Advanced Practice Provider documentation review:: Supervising physician onsite and consulted in the evaluation and care of this patient. The physician did have a face to face encounter with the patient. This chart was documented by the indicated scribe, (Bria Lucero Scribe) and accurately reflects the services I performed and decisions made by me, Abdirahman Gallego MD, as attested by the provider's signature.
[2019-02-08 10:17] LABS: CK INDEX 0.6 (0.0-2.5); CK-MB 13.01 ng/mL (0.0-5.0)
[2019-02-08 10:18] LABS: UR AMPHETAMINES QUAL NONE DETECTED (NONE DETECT); UR BARBITUATES QUAL NONE DETECTED (NONE DETECT); UR BENZODIAZEPIN QUAL NONE DETECTED (NONE DETECT); UR CANNABINOIDS QUAL NONE DETECTED (NONE DETECT); UR COCAINE QUAL NONE DETECTED (NONE DETECT); UR METHADONE QUAL NONE DETECTED (NONE DETECT); UR OPIATES QUAL NONE DETECTED (NONE DETECT); UR OXYCODONE QUAL NONE DETECTED (NONE DETECT); UR PCP QUAL NONE DETECTED (NONE DETECT)
--- NOTE | 2019-02-08 13:37 | Diag Imaging Result Doc PS360 ---
EXAM: ELBOW 2 VIEWS LEFT 02/08/2019 HISTORY: Trauma TECHNIQUE: Left elbow two views COMMENT: There is no evidence of acute fracture or dislocation. No other definite bony abnormality is present. IMPRESSION: No acute disease. Electronically signed by Garth Crews 02/08/2019 1:35 PM
--- NOTE | 2019-02-08 13:38 | Diag Imaging Result Doc PS360 ---
EXAM: KNEE 1-2 VIEWS-RIGHT 02/08/2019 HISTORY: Trauma TECHNIQUE: Right knee two views COMMENT: There is osteophyte formation present both medially and laterally and in the patellofemoral joint. There is no evidence of fracture or dislocation. There is no evidence of effusion. IMPRESSION: Osteoarthritis. Electronically signed by Garth Crews 02/08/2019 1:36 PM
--- NOTE | 2019-02-08 13:39 | Diag Imaging Result Doc PS360 ---
EXAM: FOOT 2 VIEWS LEFT 02/08/2019 HISTORY: Trauma TECHNIQUE: Left foot two views COMMENT: There is plantar spurring of the calcaneus. There is no evidence of fracture dislocation or periosteal reaction. There are some degenerative changes in the tarsal joints. The study is somewhat suboptimal due to positioning of toes. IMPRESSION: No definite evidence of acute disease. Electronically signed by Garth Crews 02/08/2019 1:37 PM
--- NOTE | 2019-02-08 13:40 | Diag Imaging Result Doc PS360 ---
EXAM: KNEE 1-2 VIEWS-LEFT 02/08/2019 HISTORY: Trauma TECHNIQUE: Left knee two views COMMENT: There is osteophyte formation medially and in the patellofemoral joint. There is extensive calcification of the superficial femoral and popliteal arteries. No evidence of fracture or dislocation is present. IMPRESSION: Osteoarthritis. Atherosclerosis. Electronically signed by Garth Crews 02/08/2019 1:38 PM
--- NOTE | 2019-02-08 13:41 | Diag Imaging Result Doc PS360 ---
EXAM: SHOULDER 1 VIEW LEFT 02/08/2019 HISTORY: Trauma TECHNIQUE: Left shoulder one view COMMENT: There is some hypertrophic change in the acromioclavicular joint. There is no evidence of acute fracture or dislocation. IMPRESSION: No acute bony disease. Electronically signed by Garth Crews 02/08/2019 1:39 PM
--- NOTE | 2019-02-08 13:52 | HISTORY AND PHYSICAL ---
PRIMARY CARE PHYSICIAN: Dr. Isaac Palacio. CHIEF COMPLAINT: Alteration of mental status. HISTORY OF PRESENT ILLNESS: A 73-year-old white female with past medical history significant for diabetes, hypertension, hyperlipidemia, and depression/anxiety with recent suicide attempt, presents for evaluation of above-mentioned symptoms. Pertinent history of present illness began on November 25. At that time, patient was admitted with alteration of mental status. Ultimately, it was deemed this was a suicide attempt with Ativan. Patient attributed this to a social situation which has since been corrected. The patient's leenrb-bm-ria provided much of the history today. She states since November 25, she has done reasonably well. There have been multiple interactions with the source of the increasing stressors, including legal action. The patient is currently living independently. She has been working on a routine basis. Over the course of the last 2 days, per patient's hisrgc-xf-xnz, she has complained of some nausea. No other symptoms were noted at that time. 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 Per report, she struck her head against the wall. The patient took a Percocet at that time. The patient's hplwio-za-jnd noted that she was in a considerable amount of pain. 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 The patient's epvchlgg-jf-rov attempted to contact her at 9 p.m. Unfortunately, there was no answer. At approximately 9:30, patient's bmdbvc-iz-tly received a call from her, although she felt this likely was accidental as she did not talk over the phone. She could, however, hear an interaction. Thereafter, patient's pxbekd-md-nph did not contact her through the evening. 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 The patient was unable to contact anyone for assistance. At 7 a.m., another caregiver arrived. Patient was found unresponsive in the restroom. EMS was contacted. Upon arrival, per report, patient had been incontinent of urine and of stool. There was also presumed hematemesis. The patient was transported immediately to the emergency department. Upon arrival, full evaluation was pursued. Of major consequence, patient was found to have a grossly elevated blood sugar with an anion gap. The patient will be admitted to the hospital for full evaluation and management of diabetic ketoacidosis, alteration of mental status and rhabdomyolysis. Of note, patient's family states the patient does have a baseline unsteady gait with multiple falls, but denies any true weakness. She has a longstanding history of intermittent migraine headaches. The headache yesterday proceeded her head trauma secondary to the fall. The patient's depression has been well controlled. The patient's family insists that this would not have been a suicidal attempt. She, per report, does not monitor her blood sugars closely. Her family also notes significant dietary indiscretion. PAST MEDICAL HISTORY: 1. Diabetes. 2. Hypertension. 3. Hyperlipidemia. 4. Depression/anxiety. CURRENT MEDICATIONS: 1. The patient was unable to provide her current medicines. Per previous records, patient was takin. Farxiga 10 mg daily. 3. Cymbalta 60 mg daily. 4. Lisinopril 10 mg daily. 5. Pravastatin 40 mg daily. 6. Trazodone 50 mg at bedtime. ALLERGIES: Per report, patient has no known drug allergies. SOCIAL HISTORY: The patient has no history of tobacco, alcohol or illicit drug use. She currently works as a medical caregiver. FAMILY HISTORY: Patient's mother passed at age 101 secondary to "old age." Patient's father passed at age 65 secondary to complications of lung cancer. REVIEW OF SYSTEMS: A 12 point review of systems was performed. Pertinent positives and negatives are noted in history of present illness. PHYSICAL EXAMINATION: VITAL SIGNS: Heart rate 128, respirations 18, blood pressure is 122/65. GENERAL: Chronically ill appearing. Minimally responsive. HEENT: Normocephalic, atraumatic. Pupils equal, round, reactive to light. Extraocular muscles intact. Sclerae anicteric. [place] conjunctivae. Oropharynx with dried blood and multiple dental caries. NECK: Supple. No lymphadenopathy. No thyromegaly. No bruits auscultated. CARDIOVASCULAR: Regular rhythm. Tachycardic. No significant murmurs, rubs, or gallops. PULMONARY: Clear to auscultation anteriorly. ABDOMEN: Soft, nontender, nondistended. Positive bowel sounds. EXTREMITIES: No significant clubbing, cyanosis, or edema. NEUROLOGIC EXAMINATION: Cranial nerves 2-12 grossly intact. Patient does appear to have decreased movement on the left upper and left lower extremity, but with extreme direction modest movement is present. DERMATOLOGIC: Evaluation reveals multiple ecchymoses. LABORATORY DATA: White blood cell count 24.32 hemoglobin 12.8, hematocrit 36.2, platelet count 302,000. PT 13.6, INR 0.96, PTT is 28.3. A pH 7.36, pCO2 22, PO2 95, bicarbonate 16.2. Sodium 134, potassium 4.5, chloride 86, bicarbonate 16. BUN 46, creatinine 2.2, glucose 622, calcium 10.0, magnesium 2.3, total bilirubin 0.87, total protein 7.2, albumin 4.3, alkaline phosphatase 92, AST 47, ALT 20. CK total 2217, CK MB 13.01, troponin less than 0.060. Lactate 3.1. Urine: 300 protein, greater than 1000 glucose, 20 ketones, moderate blood. Urine drug screen returned negative. RADIOLOGY DATA: Chest x-ray revealed no acute disease. CT scan of the head and cervical spine revealed no evidence of acute intracranial or cervical spine disease. ASSESSMENT AND PLAN: A 73-year-old white female with past medical history as noted presents altered after sustaining a fall while working last night. Laboratory data is significant for diabetic ketoacidosis, leukocytosis, and acute renal failure. Examination is significant for left- sided weakness, but without paralysis, and oropharyngeal dried blood. Patient will be admitted to the hospital for full evaluation and management of each of these conditions: 1. Admit to ICU. 2. Diabetic ketoacidosis--this patient does not have a history of diabetic ketoacidosis. Per report, she currently is being treated with Farxiga. When evaluating her previous medications, it does appear she has been prescribed insulin in the past. At this point, I am unaware whether patient is taking that medication. Regardless, diabetic ketoacidosis protocol will be pursued with aggressive IV hydration, IV insulin and electrolyte replacement. We will follow patient's clinical course closely. 3. Alteration of mental status--differential diagnosis is quite broad. In the setting of diabetic ketoacidosis, this likely is a contributing source. We will aggressively manage this as described. With an elevated white blood cell count, we will treat empirically for an infection with Zosyn therapy. We will remain aware that additional etiologies including neurologic insults, including a stroke, should be considered. We will also remain aware that overdose with medications not covered in the urine drug screen is also to be considered. For now, we will treat supportively as described. 4. Acute renal failure--this is likely secondary to volume depletion. We will aggressively hydrate. We will follow serial creatinine. A Herrera catheter has been placed. We will follow this. 5. Probable GI bleed. As above, examination suggests dried blood in the oropharynx. We will Hemoccult all stools. We will follow serial hemoglobin and hematocrit evaluations. We will start patient on an IV proton pump inhibitor. We will determine if a GI consultation is appropriate. 6. Leukocytosis--this is quite impressive. This certainly could be secondary to demargination in the setting of her acute illness and a fall. We will check blood cultures x2. We will empirically place patient on Zosyn therapy. We will monitor for any evidence of infection. 7. Rhabdomyolysis--this is likely secondary to being down for approximately 8 hours. We will follow serial CK levels. We will treat patient aggressively with hydration. 8. Left-sided weakness--this is quite curious. Patient is able to move, although there does appear to be decreased muscle tone in the left upper and left lower extremity. Certainly a stroke could have precipitated her current condition. At this point, with a possible GI bleed, she is not a candidate for any antiplatelet or anticoagulants. We will treat patient supportively with aggressive hydration. We will allow patient's blood pressure rise to a moderately elevated level. We will treat patient's underlying conditions as noted. Should her condition not demonstrate improvement, an MRI and carotid Dopplers may be appropriate. 9. Headache--this is quite curious. Examination suggest a supple neck, thus meningitis seems less likely. If, after treatment of other conditions her symptoms continue, an MRI may be appropriate. We will also consider whether lumbar puncture is necessary. 10. Multiple falls--the patient does have an ecchymosis present on her left foot, bilateral knees, left shoulder and left elbow. We will check x-rays to rule out an underlying fracture. Patient likely will require physical therapy while hospitalized. 11. Fluid/electrolytes/nutrition--we will monitor electrolytes and aggressively hydrate per diabetic ketoacidosis protocol, n.p.o. prophylaxis. Patient will be placed on SCDs in the setting of a possible GI bleed. cc: Miles Enriquez MD
[2019-02-08] MEDS ORDERED: POTASSIUM CHLORIDE 10 MEQ in NS 1,000 ML IV PRN ×2 (13:59→16:15)
[2019-02-08] MEDS ORDERED: POTASSIUM CHLORIDE 20% LIQUID PO PRN (14:00)
[2019-02-08] MEDS ORDERED: POTASSIUM CHLORIDE 20 MEQ/SWI 20 MEQ/100 ML IVPB IV PRN (14:00)
[2019-02-08] MEDS ORDERED: POTASSIUM CHLORIDE 40 MEQ/SWI 40 MEQ/100 ML IVPB IV PRN (14:00)
[2019-02-08] MEDS ORDERED: ZOFRAN IV PRN (14:00)
[2019-02-08] MEDS ORDERED: SODIUM BICARBONATE 8.4% 100 MEQ in STERILE WATER INJ. 500 ML IV PRN (14:00)
[2019-02-08] MEDS ORDERED: D5 1/2 NS + KCL 20 MEQ 1,000 ML IV PRN (14:00)
[2019-02-08] MEDS ORDERED: SODIUM PHOSPHATE 30 MMOL in D5W 250 ML IV PRN (14:00)
[2019-02-08] MEDS ORDERED: MAGNESIUM SULFATE 2 GM/S.W.I. 2 GM/50 ML IVPB IV PRN (14:00)
[2019-02-08] MEDS ORDERED: D50W SYRINGE IV PRN (14:00)
[2019-02-08] MEDS: NS 1,000 ML IV SCH ×4 (14:09→16:25)
[2019-02-08] MEDS ORDERED: SODIUM CHLORIDE 0.9% INJ SCH (14:20)
[2019-02-08] MEDS ORDERED: PROTONIX IV SCH (14:20)
[2019-02-08 14:43] LABS: BASO# 0.04 X1000 (0.0-0.2); BASO% 0.2 % (0.0-0.8); EOS# 0.01 X1000 (0.0-0.7); HEMATOCRIT 33.4 % (37.0-47.0); HEMOGLOBIN 11.9 g/dL (12.0-16.0); IMM GRAN% 0.5 % (0.0-0.5); LYMPH# 0.82 X1000 (1.2-3.4); LYMPH% 3.8 % (20.5-51.1); MCH 30.1 PG (27-31); MCHC 35.6 g/dL (33-37); MCV 84.3 FL (81-99); MONO# 2.53 X1000 (0.11-0.59); MONO% 11.8 % (1.7-9.3); NEUT# 17.93 X1000 (1.4-6.5); NEUT% 83.7 % (42.2-75.2); PLT 299 X1000 (130-400); RBC 3.96 XMIL (4.2-5.4); RDW 12.8 % (11.5-14.5); WBC 21.43 X1000 (4.8-10.8)
[2019-02-08] MEDS: HUMULIN R 100 UNIT in NS 99 ML IV SCH (14:45)
[2019-02-08] MEDS: ZOSYN 3.375 GM in NS 50 ML IV SCH ×2 (14:48→20:08)
[2019-02-08] MEDS ORDERED: OFIRMEV 1000 MG/ISOTONIC SOLN 1,000 MG/100 ML BOTTLE IV PRN (15:04)
[2019-02-08 15:26] LABS: CK INDEX 0.5 (0.0-2.5); CK-MB 11.67 ng/mL (0.0-5.0)
[2019-02-08 16:07] LABS: CALCIUM 8.4 mg/dL (8.8-10.2); CREATININE 1.9 mg/dL (0.5-0.9); PHOSPHORUS 3.2 mg/dL (2.7-4.5); POTASSIUM 4.1 mmol/L (3.5-5.1)
[2019-02-08] MEDS ORDERED: POTASSIUM CHLORIDE 10 MEQ in NS 1,000 ML IV SCH (16:15)
[2019-02-08] MEDS ORDERED: POTASSIUM CHLORIDE 20 MEQ/SWI 20 MEQ/100 ML IVPB IV ONE (16:16)
[2019-02-08] MEDS: D5 1/2 NS + KCL 20 MEQ 1,000 ML IV SCH ×2 (17:31→20:47)
[2019-02-08] MEDS ORDERED: VANCOMYCIN IV PER PHARMACY MISC SCH (17:45)
[2019-02-08] MEDS: POTASSIUM CHLORIDE 10 MEQ in NS 1,000 ML IV SCH (18:17)
[2019-02-08] MEDS ORDERED: VANCOMYCIN 1,200 MG in NS 250 ML IV ONE (19:00)
[2019-02-08 19:53] LABS: CALCIUM 8.2 mg/dL (8.8-10.2); CREATININE 1.7 mg/dL (0.5-0.9); MAGNESIUM 1.7 mg/dL (1.5-2.7); PHOSPHORUS 1.9 mg/dL (2.7-4.5); POTASSIUM 3.5 mmol/L (3.5-5.1)
[2019-02-09 00:18] LABS: CALCIUM 8.1 mg/dL (8.8-10.2); CREATININE 1.4 mg/dL (0.5-0.9); MAGNESIUM 1.8 mg/dL (1.5-2.7); PHOSPHORUS 1.7 mg/dL (2.7-4.5); POTASSIUM 4.5 mmol/L (3.5-5.1)
[2019-02-09] MEDS ORDERED: POTASSIUM CHLORIDE 20 MEQ/SWI 20 MEQ/100 ML IVPB IV ONE ×2 (00:48→04:29)
[2019-02-09] MEDS: POTASSIUM CHLORIDE 10 MEQ in NS 1,000 ML IV SCH ×5 (01:24→22:42)
[2019-02-09] MEDS: ZOSYN 3.375 GM in NS 50 ML IV SCH ×4 (01:40→20:03)
[2019-02-09 04:09] LABS: CALCIUM 7.5 mg/dL (8.8-10.2); CREATININE 1.3 mg/dL (0.5-0.9); MAGNESIUM 1.7 mg/dL (1.5-2.7); POTASSIUM 3.8 mmol/L (3.5-5.1)
[2019-02-09] MEDS ORDERED: MAGNESIUM SULFATE 2 GM/S.W.I. 2 GM/50 ML IVPB IV ONE (04:29)
[2019-02-09] MEDS: D5 1/2 NS + KCL 20 MEQ 1,000 ML IV SCH ×3 (04:45→13:39)
[2019-02-09 07:31] LABS: ALLEN TEST YES; BE -5.4 mmoll (-3.0-3.0); BLOOD TYPE ARTERIAL; HCO3-(ACT) 20.7 mmoll (20.0-26.0); METHB 0.8 % (0.0-1.5); O2HB 97.2 % (95.0-99.0); PCO2(98.6) 27 mmHg (35-45); PO2(98.6) 105 mmHg (60-100); SAMPLE BLOOD; SAO2 99.3 % (95.0-100.0); THB 9.4 g/dL (11.5-17.4); pH(98.6) 7.43 (7.35-7.45)
[2019-02-09 08:06] LABS: BASO# 0.02 X1000 (0.0-0.2); BASO% 0.1 % (0.0-0.8); EOS# 0.01 X1000 (0.0-0.7); EOS% 0.1 % (0.0-10.0); HEMATOCRIT 30.2 % (37.0-47.0); HEMOGLOBIN 10.3 g/dL (12.0-16.0); IMM GRAN# 0.09 X1000 (0.0-0.04); IMM GRAN% 0.5 % (0.0-0.5); LYMPH# 1.14 X1000 (1.2-3.4); LYMPH% 6.3 % (20.5-51.1); MCH 29.3 PG (27-31); MCHC 34.1 g/dL (33-37); MCV 85.8 FL (81-99); MONO# 2.39 X1000 (0.11-0.59); MONO% 13.3 % (1.7-9.3); MPV 11.1 FL (7.4-10.4); NEUT# 14.38 X1000 (1.4-6.5); NEUT% 79.7 % (42.2-75.2); PLT 218 X1000 (130-400); RBC 3.52 XMIL (4.2-5.4); RDW 13.2 % (11.5-14.5); WBC 18.03 X1000 (4.8-10.8)
--- NOTE | 2019-02-09 08:29 | EKG Report ---
Test Performed on : 02/08/2019 09:47:34 AM Test Reason : ED. No order in [place] Blood Pressure : / mmHG Vent. Rate : 119 BPM Atrial Rate : 119 BPM P-R Int : 168 ms QRS Dur : 080 ms QT Int : 324 ms P-R-T Axes : 077 076 076 degrees QTc Int : 455 ms Sinus tachycardia. Possible Left atrial enlargement Borderline ECG No previous ECGs available Unconfirmed Result
[2019-02-09 08:34] LABS: CALCIUM 7.7 mg/dL (8.8-10.2); CREATININE 1.2 mg/dL (0.5-0.9); MAGNESIUM 2.6 mg/dL (1.5-2.7); POTASSIUM 4.1 mmol/L (3.5-5.1)
[2019-02-09 09:23] LABS: CK INDEX 0.2 (0.0-2.5); CK-MB 9.18 ng/mL (0.0-5.0)
--- NOTE | 2019-02-09 09:38 | PROGRESS NOTE ---
DATE: 02/09/2019 SUBJECTIVE: We had a long conversation with Dr. Enriquez about the patient's admission when I spoke with the nurse. Ms. Monteiro was awake and alert, but not completely oriented. She knew she was in the hospital, but did not recognize me. She was a little slow on recounting the events which led to her admission. She does remember falling backwards and hitting her head rather hard. She denied any ongoing cough, wheezing, shortness of breath, chest pain, or palpitations. She denied abdominal pain, nausea and vomiting. She denied melena or hematochezia. She had no dysuria. OBJECTIVE: Vital Signs: Last temperature at 03:28 this morning was 99.9 degrees, pulse rate was 90 at the time of my examination. Respirations were 15 and blood pressure 122/61. PHYSICAL EXAMINATION: General: She is a well-developed, thin, white female who is in no acute distress. ENT: The patient has dried blood around her mouth. She has poor dentition. Neck: Unremarkable. Lungs: Clear to auscultation. Cardiovascular: Regular. Abdomen: Bowel sounds are present. She was soft, nontender, and nondistended. Extremities: Muscle wasting in the quadriceps and generally thin extremities. There is bruising along the left arm. Neurological: The patient is able to freely move her left hand and arm. She states that it hurts, and is very sore. She is able to move her legs spontaneously against gravity and appears to have normal neurological function from the standpoint that she has no focal neurological deficits. LABORATORY: White cell count 18.0 and hemoglobin 10.3. ABG 7.43, pCO2 27, PO2 of 105, 99% saturated on room air, potassium is 4.1, bicarb is low at 18 and anion gap is 13. BUN 28 and creatinine 1.2. Blood sugar is very low through the morning. CK is up at 4506. Index is pending. Troponin is actually reduced from previous at 0.025. ASSESSMENT AND PLAN: 1. The patient clearly had diabetic ketoacidosis, which appears to be in the process of resolution. Her bicarb is still a bit low and blood sugars are quite variable. At the present time, we are holding her insulin drip. We will continue intravenous fluids, and we will monitor blood sugars. I plan to feed the patient if she passes a swallowing screen which I think is quite likely. 2. The patient's alteration of mental status is multifactorial most likely. I suspect that she suffered a concussion from hitting her head, and also the DKA. She had a high fever upon admission, and I do not have a source for that as her urine was clear. Chest x-ray was clear. I plan to check a flu swab as I have actually seen 2 cases at the end of January so I know that it is out in the community. 3. Acute renal failure. The patient's creatinine has improved slightly. We will continue to replete her volume. 4. It is unclear whether the patient has had a gastrointestinal bleed. We will continue to monitor hemoglobin and hematocrit. She has dried blood around her mouth, but I suspect some of that is traumatic. 5. The patient continues to have leukocytosis. She is on broad-spectrum antibiotics. 6. The patient has rhabdomyolysis and the CK level has actually increased overnight. This again is testament to the level of trauma that she had undertaken with her fall and subsequent time laying on the floor during the night. 7. The perceived left-sided weakness that appears to be completely resolved today. She has difficulty moving due to pain and soreness of her joints, particularly on the left side, but beyond that is able to function and does not appear to have a focal neurological deficit. 8. The patient's headache was not a complaint of hers today. I suspect that she suffered a concussion as she pointed to the back of her head where she fell as the source of her head pain. 9. We will continue to monitor fluid and electrolytes. The patient still requires ICU monitoring in my opinion. cc: MD Miles Kidd MD
[2019-02-09 13:17] LABS: CALCIUM 7.8 mg/dL (8.8-10.2); CREATININE 1.1 mg/dL (0.5-0.9); MAGNESIUM 2.3 mg/dL (1.5-2.7); POTASSIUM 4.6 mmol/L (3.5-5.1)
[2019-02-09] MEDS: NEXIUM IV SCH (15:51)
[2019-02-09] MEDS: HUMULIN R 100 UNIT in NS 99 ML IV SCH (16:26)
[2019-02-09] MEDS: POTASSIUM CHLORIDE 10% LIQUID PO PRN (22:08)
[2019-02-10] MEDS: ZOSYN 3.375 GM in NS 50 ML IV SCH ×4 (02:34→22:18)
[2019-02-10] MEDS: POTASSIUM CHLORIDE 10 MEQ in NS 1,000 ML IV SCH ×2 (04:22→07:12)
[2019-02-10 05:21] LABS: BASO# 0.03 X1000 (0.0-0.2); BASO% 0.2 % (0.0-0.8); EOS# 0.15 X1000 (0.0-0.7); EOS% 1.2 % (0.0-10.0); HEMATOCRIT 26.6 % (37.0-47.0); LYMPH# 1.54 X1000 (1.2-3.4); MCH 30.1 PG (27-31); MCHC 33.8 g/dL (33-37); MONO# 0.86 X1000 (0.11-0.59); MONO% 6.7 % (1.7-9.3); MPV 11.2 FL (7.4-10.4); NEUT# 10.22 X1000 (1.4-6.5); NEUT% 79.9 % (42.2-75.2); PLT 199 X1000 (130-400); RBC 2.99 XMIL (4.2-5.4); RDW 13.2 % (11.5-14.5)
[2019-02-10 06:00] LABS: ALB/GLOB RATIO 1.2; ALBUMIN 2.7 g/dL (3.5-5.0); CALCIUM 7.7 mg/dL (8.8-10.2); MAGNESIUM 2.1 mg/dL (1.5-2.7); POTASSIUM 3.8 mmol/L (3.5-5.1); TOTAL BILIRUBIN 0.38 mg/dL (0.20-1.00); TOTAL PROTEIN 4.9 g/dL (6.3-8.3)
[2019-02-10] MEDS: POTASSIUM CHLORIDE 10% LIQUID PO PRN (06:27)
[2019-02-10 06:29] LABS: CK INDEX 0.3 (0.0-2.5); CK-MB 7.8 ng/mL (0.0-5.0)
[2019-02-10] MEDS: 1/2 NS 2,000 ML IV SCH (10:11)
[2019-02-10] MEDS: SODIUM BICARBONATE PO SCH ×2 (10:11→21:38)
[2019-02-10] MEDS: LANTUS INSULIN SUBQ SCH ×2 (11:15→21:39)
[2019-02-10] MEDS: HUMALOG SUBQ SCH ×3 (11:44→21:38)
[2019-02-10] MEDS ORDERED: VANCOMYCIN 1,350 MG in NS 250 ML IV ONE (12:00)
--- NOTE | 2019-02-10 12:37 | PROGRESS NOTE ---
DATE: 02/10/2019 SUBJECTIVE: The patient is alert, sitting up on the side of the bed. She is operating at baseline. She states that she is still sore all over from her trauma, but does not have a headache. All reports from the nurses are positive as far as her progress. Blood sugar seems to be reasonably well controlled at the present rate. OBJECTIVE: Vitals: Last recorded temperature is 98.2 degrees, pulse rate 86, respirations 12, blood pressure was 181/80. General: The patient is alert, oriented, conversive and appropriate. Lungs: Clear. Cardiovascular: Regular. Extremities: The extremities show no peripheral edema. LABORATORY: White cell count is 12.8, hemoglobin is 9.0, hematocrit 26.6. Serum electrolytes grossly normal. BUN is 19, creatinine 1.0. Blood sugars are in the high 100s to mid 200s. CK is down at 3052. Albumin is 2.7. ASSESSMENT AND PLAN: 1. The patient's diabetic ketoacidosis has resolved. She is off insulin drip and is eating. We will monitor her blood sugar aggressively on the floor as I plan to transfer the patient today. I am going to put her back on 20 units of Lantus twice daily with a sliding scale and we will monitor to see how this goes. The hospital does not have access to [facility], so for the time being that is out. 2. The patient's mental status has recovered. She is multifactorially influenced. 3. Flu test was negative. 4. Acute renal failure appears to have resolved. Volume repletion is complete. 5. The patient acknowledges that she has a cut inside of her mouth on the inner portion of the left lower lip and that was the source of the blood in her mouth. It is still unclear whether she had any bloody vomitus, but her drop in hemoglobin is likely due to rehydration with a chronic anemia. We will continue to follow this. 6. The patient continues to have leukocytosis. We are going to continue antibiotics for the time being, and there are no new microbiology results in the blood cultures. 7. The patient's left-sided weakness is due to soreness of her muscles and she was lying on that side. This seems to have resolved completely. 8. No longer has headaches. 9. Transfer to the floor today with telemetry and increase level of activity. cc: MD Miles Kidd MD
[2019-02-10] MEDS: NEXIUM IV SCH (15:09)
[2019-02-10] MEDS ORDERED: VANCOMYCIN 1,000 MG in NS 250 ML IV SCH (19:00)
[2019-02-11] MEDS: 1/2 NS 2,000 ML IV SCH ×2 (06:35→06:50)
[2019-02-11] MEDS: ZOSYN 3.375 GM in NS 50 ML IV SCH (06:36)
[2019-02-11] MEDS: HUMALOG SUBQ SCH ×4 (06:36→21:36)
[2019-02-11 07:12] LABS: BASO# 0.03 X1000 (0.0-0.2); BASO% 0.4 % (0.0-0.8); EOS# 0.23 X1000 (0.0-0.7); EOS% 2.8 % (0.0-10.0); HEMATOCRIT 30.8 % (37.0-47.0); HEMOGLOBIN 10.5 g/dL (12.0-16.0); LYMPH% 14.6 % (20.5-51.1); MCH 30.3 PG (27-31); MCHC 34.1 g/dL (33-37); MONO# 0.62 X1000 (0.11-0.59); MONO% 7.5 % (1.7-9.3); NEUT# 6.14 X1000 (1.4-6.5); NEUT% 74.7 % (42.2-75.2); PLT 228 X1000 (130-400); RBC 3.46 XMIL (4.2-5.4); RDW 13.4 % (11.5-14.5); WBC 8.22 X1000 (4.8-10.8)
[2019-02-11 07:47] LABS: ALB/GLOB RATIO 1.3; ALBUMIN 3.3 g/dL (3.5-5.0); CALCIUM 8.5 mg/dL (8.8-10.2); POTASSIUM 3.9 mmol/L (3.5-5.1); TOTAL BILIRUBIN 0.44 mg/dL (0.20-1.00); TOTAL PROTEIN 5.9 g/dL (6.3-8.3)
[2019-02-11 08:25] LABS: CK INDEX 0.4 (0.0-2.5); CK-MB 7.79 ng/mL (0.0-5.0)
[2019-02-11] MEDS: SODIUM BICARBONATE PO SCH ×2 (09:25→21:38)
[2019-02-11] MEDS: LANTUS INSULIN SUBQ SCH ×2 (09:25→21:39)
--- NOTE | 2019-02-11 10:17 | PROGRESS NOTE ---
DATE: 02/11/2019 SUBJECTIVE: The patient has no complaints. She is eating well. She would like to get rid of some of her tethers. She did mention that she has not had a bowel movement since coming to the hospital but she is eating well. She is not in any pain or having any distention. VITAL SIGNS: 98.1, 88, 176/69, 100% saturated on room air. PHYSICAL EXAMINATION: The patient is alert, oriented, conversive, and appropriate. She is operating at normal mental capacity. Lungs are clear. Cardiovascular is regular. Viewing her left lateral leg, there is some resolving bruising there. Clearly, that is a likely source of much of her elevated CK. LABORATORY DATA: White cell count is 8.2, hematocrit 30.8. BUN is 15, creatinine 1.0. Blood sugar has been variable from around 200 to 350 range. Liver function tests are still slightly elevated but are coming down. CK is 1868. ASSESSMENT AND PLAN: 1. I am going to up the patient's Lantus to 35 units. That is close to her total requirement from yesterday and so we will see if this is close to adequate. I suspect that one of the causes of her fall was hypoglycemia. I do not know this for sure but given her history, I think that is a likelihood. We will continue to monitor the blood sugar for another 24 hours. 2. Mental status has recovered. 3. Acute renal failure has resolved. 4. Serum CK is still markedly elevated but is coming down at a reasonable rate. 5. Leukocytosis has resolved. I will plan to discontinue antibiotics. 6. Previous observed left-sided weakness has improved and is nonexistent at the present time. It was mostly due to soreness and mental incapacity previously. 7. No headaches. 8. Hopefully, if all goes well, we will be able to discharge tomorrow. We may have to make an adjustment in her twice a day insulin but that remains to be seen. cc: MD Miles Kidd MD
[2019-02-11] MEDS ORDERED: VANCOMYCIN 1,000 MG in NS 250 ML IV SCH (23:00)
[2019-02-12] MEDS: HUMALOG SUBQ SCH (06:16)
[2019-02-12 07:21] VITALS: BP 160/68
[2019-02-12] MEDS ORDERED: LEVEMIR SUBQ SCH ×2 (09:00→21:00)
--- NOTE | 2019-02-15 14:14 | DISCHARGE SUMMARY ---
ADMISSION DATE: 02/08/2019 DISCHARGE DATE: 02/12/2019 DISCHARGE DIAGNOSES: 1. Acute mental status change. 2. Dehydration. 3. Diabetic ketoacidosis. 4. Rhabdomyolysis. 5. Acute kidney injury. 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 She had been down for an unknown amount of time, and there was blood in her mouth. She was unresponsive. She was transported to the emergency room and found to be in DKA, likely with a concussion and rhabdomyolysis. The patient was admitted to the ICU and aggressively rehydrated with correction of elevated blood sugar and fluid and electrolyte deficits. She did quite well, and over the course of the weekend, had improvement in her altered mental status. The patient was started on a diabetic diet, and we titrated up her dose and decided to put her on 40 units of Levemir in the morning and 35 at night. The patient is known for being noncompliant with glycemic control and dietary discretion. On the date of discharge, the patient was in good condition and very eager to go home. Her blood sugar was in the low 200s, having restarted this insulin regimen. The patient will be discharged home on all previous medications. The patient's acute kidney injury resolved back to baseline. cc: MD Miles Kidd MD MTDD
== END 2019-02-12 10:35 | disposition home or self-care (01) | DRG 637 ==
LOC: SUPCPDRO → ED 08:07 → ICU 13:41 → 3N 02-10 14:17
PROVIDERS: ADMIT Internal Medicine; ATTEND Internal Medicine
CPT/HCPCS: 51702; 70450; 71010; 71045; 72125; 73020; 73070; 73560; 73620; 80048; 80053; 80101; 80301; 80307; 80320; 80324; 80345; 80346; 80353; 80358; 80361; 80365; 81001; 82055; 82550; 82553; 82805; 82947; 82948; 83605; 83735; 83992; 84100; 84132; 84484; 85025; 85610; 85730; 87040; 87275; 87276; 87804; 93005; 94761; 96360; 99285; 99291; A9270; C9113; G0431; G0434; G0479; G0480; G6040; J0131; J1815; J2543; J3370; J3475; J3480; J7030; J7050; S0164; XXXXX